=== PATIENT | male | born 1935 | race Caucasian/White ===

== ENCOUNTER 2017-01-23 11:46 | Emergency (ER) | payer MEDICARE, OTHER ==
[2017-01-23] MEDS ORDERED: Alum Hydrox/Mag Hydrox/Simeth 30 ML, Lidocaine 2% 15 ML PO ONE ×2 (12:10)
[2017-01-23] MEDS ORDERED: Aspirin 81 MG Tab.Chew PO ONE (12:10)
[2017-01-23] MEDS ORDERED: Nitroglycerin 0.4 MG Tab.SL SL PRN (12:12)
[2017-01-23] MEDS ORDERED: Metoprolol Tartrate 5 MG in Sodium Chloride 0.9% 50 ML IV ONE (12:13)
[2017-01-23] MEDS ORDERED: Sodium Chloride 0.9% 10 ML Syringe FLUSH PRN (12:19)
--- NOTE | 2017-01-23 12:23 | EDM.PDOC ---
ED HPI GENERAL MEDICAL PROBLEM - General Chief Complaint: Chest Pain Stated Complaint: CHEST PAIN Time Seen by Provider: 01/23/17 12:08 Source of Information: Reports: Patient, Family History Limitations: Reports: No Limitations - History of Present Illness INITIAL COMMENTS - FREE TEXT/NARRATIVE: Patient is a 81-year-old male presents ED complaining of substernal chest pain described as sharp in nature that radiates into his back. Patient states he awoke with this discomfort at approximately 3:00 this morning. He took one nitroglycerin became dizzy with no relief chest pain. Went back to bed in attempt to sleep. Has taken a baby aspirin this morning 1 tab by mouth. States he's had a CABG x4 approximately 9 years ago and also 13 total stents. Last stent was approx 3 years ago. Unknown location. States prior to stent placement he never had chest discomfort. Currently the pain is rated 9/10. He has no shortness of breath. Pain is not described as a tearing sensation. He has a history of aortic valve insufficiency requiring surgery. Denies any history of ascending aortic aneurysm. Currently denies any SOB, dizziness, nausea/vomiting , abdominal pain, pain to his neck, arms, vision changes, or any additional complaints. Past history includes coronary artery disease with stent placement and CABG. Hypertension, GERD, diabetes Current medications include Imdur, Lopressor 50 mg 1 tablet twice daily, HCTZ 25 mg 0.5 mg by mouth 1 time per day, Zantac 150 milligrams 1 tablet by mouth twice a day, Plavix 75 mg 1 tablet per day, aspirin 81 mg, Zetia 10 mg tablet by mouth every other day, Nitrostat, tramadol, lisinopril 10 mg by mouth every day, allopurinol 300 mg by mouth times tab per day, and some eyedrops. Chest Pain Score (Numeric/FACES): 10 - Related Data Allergies Allergy/AdvReac Type Severity Reaction Status Date / Time No Known Allergies Allergy Verified 01/23/17 11:52 Home Meds: Home Meds Allopurinol [Zyloprim] 300 mg PO DAILY 01/23/17 [History] Aspirin [Ecotrin] 81 mg PO DAILY 01/23/17 [History] Brimonidine Tartrate/Timolol [Combigan Eye Drops] 1 drop EYEBOTH DAILY 01/23/17 [History] Clopidogrel Bisulfate [Plavix] 75 mg PO DAILY 01/23/17 [History] Ezetimibe [Zetia] 10 mg PO Q2D 01/23/17 [History] Hydrochlorothiazide 12.5 mg PO DAILY 01/23/17 [History] Isosorbide Mononitrate [Imdur] 60 mg PO DAILY 01/23/17 [History] Lisinopril 10 mg PO DAILY 01/23/17 [History] Metoprolol Tartrate 50 mg PO BID 01/23/17 [History] Nitroglycerin [Nitrostat] 0.4 mg SL ASDIRECTED PRN 01/23/17 [History] Ranitidine [Zantac] 150 mg PO BID 01/23/17 [History] Rosuvastatin [Crestor] 5 mg PO DAILY 01/23/17 [History] Travoprost [Travatan Z] 1 drop EYEBOTH BEDTIME 01/23/17 [History] Social & Family History - Tobacco Use Smoking Status *Q: Never Smoker Second Hand Smoke Exposure: No - Alcohol Use Days Per Week of Alcohol Use: 0 - Recreational Drug Use Recreational Drug Use: No ED ROS GENERAL - Review of Systems Review Of Systems: ROS reveals no pertinent complaints other than HPI. ED EXAM, GENERAL - Physical Exam Exam: See Below Exam Limited By: No Limitations General Appearance: Alert, WD/WN, No Apparent Distress Ears: Hearing Grossly Normal Nose: Normal Inspection Throat/Mouth: Normal Voice, No Airway Compromise Head: Atraumatic, Normocephalic Neck: Normal Inspection, Supple Respiratory/Chest: No Respiratory Distress, Lungs Clear, Normal Breath Sounds, No Accessory Muscle Use, Chest Non-Tender Cardiovascular: Normal Peripheral Pulses, Regular Rate, Rhythm Peripheral Pulses: 2+: Radial (R) GI/Abdominal: Normal Bowel Sounds, Soft, Non-Tender, No Distention Extremities: Normal Inspection, Non-Tender, No Pedal Edema, Normal Capillary Refill Neurological: Alert, Oriented, CN II-XII Intact, Normal Cognition, No Motor/ Sensory Deficits Psychiatric: Normal Affect, Normal Mood Skin Exam: Warm, Dry, Intact Course - Vital Signs Last Recorded V/S: Last Vital Signs Temp 96.6 F 01/23/17 11:53 Pulse 70 01/23/17 16:22 Resp 18 01/23/17 11:53 BP 186/79 H 01/23/17 16:22 Pulse Ox 98 01/23/17 13:37 - Orders/Labs/Meds Orders: Active Orders 24 hr Category Date Time Status Peripheral IV Care [RC] . DIRECTED Care 01/23/17 12:19 Active Peripheral IV Insertion Adult [OM.PC] Stat Oth 01/23/17 12:19 Ordered Labs: Laboratory Tests 01/23/17 01/23/17 01/23/17 Range/Units 12:05 12:05 12:05 WBC 17.08 H (4.23-9.07) K/mm3 RBC 5.17 (4.63-6.08) M/mm3 Hgb 15.0 (13.7-17.5) gm/L Hct 45.7 (40.1-51.0) % MCV 88.4 (79.0-92.2) fl MCH 29.0 (25.7-32.2) pg MCHC 32.8 (32.2-35.5) g/dl RDW Std Deviation 55.1 H (35.1-43.9) fL Plt Count 188 (163-337) K/mm3 MPV 10.3 (9.4-12.3) fl Neut % (Auto) 91.3 H (34.0-67.9) % Lymph % (Auto) 4.0 L (21.8-53.1) % [place] % (Auto) 4.4 L (5.3-12.2) % Eos % (Auto) 0.1 L (0.8-7.0) Baso % (Auto) 0.1 (0.1-1.2) % Neut # (Auto) 15.59 H (1.78-5.38) K/mm3 Lymph # (Auto) 0.68 L (1.32-3.57) K/mm3 [place] # (Auto) 0.76 (0.30-0.82) K/mm3 Eos # (Auto) 0.01 L (0.04-0.54) K/mm3 Baso # (Auto) 0.02 (0.01-0.08) K/mm3 Manual Slide Review Abnormal smear PT 10.7 (8.0-13.0) SECONDS INR 0.98 APTT 25 (22-36) SECONDS Sodium 141 (136-145) mEq/L Potassium 4.2 (3.5-5.1) mEq/L Chloride 101 (98-107) mEq/L Carbon Dioxide 28 (21-32) mEq/L Anion Gap 16.2 H (5-15) BUN 45 H (7-18) mg/dL Creatinine 2.0 H (0.7-1.3) mg/dL Est Cr Clr Drug Dosing 29.40 mL/min Estimated GFR (MDRD) 32 (>60) mL/min BUN/Creatinine Ratio 22.5 H (14-18) Glucose 169 H (83-115) mg/dL Calcium 9.5 (8.5-10.1) mg/dL Total Bilirubin 1.1 H (0.2-1.0) mg/dL AST 22 (15-37) U/L ALT 22 (16-63) U/L Alkaline Phosphatase 129 H (46-116) U/L CK-MB (CK-2) 3.7 H (0-3.6) ng/ml Troponin I 0.051 (0.00-0.056) ng/mL C-Reactive Protein 1.5 H* (<1.0) mg/dL Total Protein 7.9 (6.4-8.2) g/dl Albumin 3.8 (3.4-5.0) g/dl Globulin 4.1 gm/dL Albumin/Globulin Ratio 0.9 L (1-2) Lipase 63 L (73-393) U/L 01/23/ Range/Units 14:05 WBC (4.23-9.07) K/mm3 RBC (4.63-6.08) M/mm3 Hgb (13.7-17.5) gm/L Hct (40.1-51.0) % MCV (79.0-92.2) fl MCH (25.7-32.2) pg MCHC (32.2-35.5) g/dl RDW Std Deviation (35.1-43.9) fL Plt Count (163-337) K/mm3 MPV (9.4-12.3) fl Neut % (Auto) (34.0-67.9) % Lymph % (Auto) (21.8-53.1) % [place] % (Auto) (5.3-12.2) % Eos % (Auto) (0.8-7.0) Baso % (Auto) (0.1-1.2) % Neut # (Auto) (1.78-5.38) K/mm3 Lymph # (Auto) (1.32-3.57) K/mm3 [place] # (Auto) (0.30-0.82) K/mm3 Eos # (Auto) (0.04-0.54) K/mm3 Baso # (Auto) (0.01-0.08) K/mm3 Manual Slide Review PT (8.0-13.0) SECONDS INR APTT (22-36) SECONDS Sodium (136-145) mEq/L Potassium (3.5-5.1) mEq/L Chloride (98-107) mEq/L Carbon Dioxide (21-32) mEq/L Anion Gap (5-15) BUN (7-18) mg/dL Creatinine (0.7-1.3) mg/dL Est Cr Clr Drug Dosing mL/min Estimated GFR (MDRD) (>60) mL/min BUN/Creatinine Ratio (14-18) Glucose (83-115) mg/dL Calcium (8.5-10.1) mg/dL Total Bilirubin (0.2-1.0) mg/dL AST (15-37) U/L ALT (16-63) U/L Alkaline Phosphatase (46-116) U/L CK-MB (CK-2) 3.1 (0-3.6) ng/ml Troponin I 0.079 H* (0.00-0.056) ng/mL C-Reactive Protein (<1.0) mg/dL Total Protein (6.4-8.2) g/dl Albumin (3.4-5.0) g/dl Globulin gm/dL Albumin/Globulin Ratio (1-2) Lipase (73-393) U/L Meds: Medications Discontinued Medications Generic Name Dose Route Start Last Admin Trade Name Freq PRN Reason Stop Dose Admin Aspirin 243 mg 01/23/17 12:10 01/23/17 12:38 Aspirin PO 01/23/17 12:11 243 mg ONETIME ONE Administration Al Hydroxide/Mg Hydroxide 30 0 ml 01/23/17 12:10 01/23/17 12:39 ml/ Lidocaine HCl 15 ml PO 01/23/17 12:11 45 ml ONETIME ONE Administration Metoprolol Tartrate 5 mg/ 55 mls @ 100 mls/hr 01/23/17 12:13 01/23/17 12:54 Sodium Chloride IV 01/23/17 12:45 Not Given ONETIME ONE Sodium Chloride 1,000 mls @ 75 mls/hr 01/23/17 12:30 01/23/17 12:39 Normal Saline IV 75 mls/hr ASDIRECTED MAURA Administration Heparin Sodium/Dextrose 25,000 units in 500 mls @ 0 mls/hr 01/23/17 15:00 15:05 Heparin 25,000 Units In D5w 500 Ml IV 24 mls/hr TITRATE MAURA Administration Protocol 12 UNITS/KG/HR Nitroglycerin/Dextrose 25 mg in 250 mls @ 3 mls/hr 01/23/17 16:15 01/23/17 16 :26 Nitroglycerin 25 Mg/D5w 250 Ml IV 5 mcg/min TITRATE MAURA 3 mls/hr Protocol Administration 5 MCG/MIN Metoprolol Tartrate 5 mg 01/23/17 12:31 01/23/17 12:42 Lopressor IVPUSH 01/23/17 12:32 5 mg ONETIME ONE Administration Metoprolol Tartrate 5 mg 01/23/17 14:39 01/23/17 14:47 Lopressor IVPUSH 01/23/17 14:40 5 mg ONETIME ONE Administration Metoprolol Tartrate 50 mg 01/23/17 16:03 01/23/17 16:22 Lopressor PO 01/23/17 16:04 50 mg ONETIME ONE Administration Morphine Sulfate 4 mg 01/23/17 13:21 01/23/17 13:37 Morphine IVPUSH 01/23/17 13:22 4 mg ONETIME ONE Administration Morphine Sulfate 4 mg 01/23/17 14:55 Morphine IVPUSH ONETIME PRN Chest Pain Nitroglycerin 0.4 mg 01/23/17 12:12 01/23/17 12:41 Nitrostat SL 0.4 mg Q5M PRN Administration Chest Pain Sodium Chloride 10 ml 01/23/17 12:19 01/23/17 12:44 Saline Flush FLUSH 10 ml ASDIRECTED PRN Administration Keep Vein Open - Re-Assessments/Exams Free Text/Narrative Re-Assessment/Exam: Patient currently experiencing chest pain with bp 205/85. Will proceed with nitroglycerin and Lopressor. See below for orders IV established with MS 75 mL per hour, aspirin to 243 mg by mouth, metoprolol tartrate 5 mg IVP, and nitroglycerin 0.4 mg sublingual every 5 minutes when necessary for pain following blood pressure parameters. Initial labs and studies include CBC, chem 14, CRP, troponin, coag studies, lipase, CK-MB, EKG, and chest x-ray one view. EKG: First-degree AV block at a rate of 64 with incomplete right bundle branch block and left anterior fascicular block. No acute ST changes noted. This is compared with previous EKG obtained July 06, 2014 with no significant changes. CXR: Sternotomy wires present. Lung parenchyma does not reveal any acute findings. Calcification to the aortic arch with no widening noted. Cardiomegaly present. Final interpretation is pending reviewed with Dr. Love. Labs reviewed: White blood cell count 17.8, hemoglobin 15.0, neutrophil percentage is 91.3, neutrophil #15.59, coag study INR 0.98, aPTT 25, PT 10.7, sodium 141, potassium 4.2, AG 16.2, creatinine 02.0 close to baseline, glucose 169, alk phosphatase 129, CK-MB is 3.7, troponin 0.051, CRP 1.5 lipase 63. Unclear etiology current complaint. CK-MB is mildly elevated above the upper limits of normal. Continues to have chest discomfort. Although troponin is normal. Will go ahead and get a second troponin in 2 hours. Suspect this is either related to esophageal/acid reflux and/or heart. Unable to rule out ascending aortic aneurysm probability low. Will evaluate for size of the ascending aorta with CT of the chest without contrast. Unable to use contrast due to renal insufficiency. 1310 Reassessment, pain is 8 out of 10. Decreasing as we speak. Believes nitroglycerin was not working. States the GI cocktail is relieving his chest discomfort. Offered additional nitroglycerin to see if this would help. He refuses. Will order morphine 4 mg IVP. In addition I have also ordered a CT of the chest. Second troponin and CK-MB was obtained 2 hours from previous blood work. 01/23/17 13:43 Believe patient's creatinine of 2.0 is close to patient's baseline. Last creatinine noted here was 1.8 July 06, 2014. Prior to that it was 1.4 October 08, 2013. 1343 CT the chest impression: Multiple gallstones in other incidental findings. Nothing acute is identified on noncontrast chest CT. 01/23/17 14:37 Blood pressure 190/systolic. Pain to the chest improving 5/10. He is resting comfortably. Ordered lopressor 5 mg IVP. Morphine 4mg IVP. In addition ordered heparin bolus with gtt following n-stemi guidelines. 01/23/17 14:51 Called [facility] they will call me back when the hospitalist is available. Blood pressure unchanged. Ordered metoprolol 50mg po. I will also ordered nitroglycerin drip due to the patient's elevated blood pressures and continue have pain to 2-3 currently. 01/23/17 16:04 Spoke with [facility] Coordinator. She has spoke with cardiology and Dr. Bai. has accepted the patient. He will be admitted to room 238. Ambulance has been notified. All transfer paperwork has been completed. Departure - Departure Time of Disposition: 16:13 Disposition: DC/Tfer to Acute Hospital 02 Reason for Transfer *Q: Other Condition: Good Clinical Impression: NSTEMI (non-ST elevated myocardial infarction) Referrals: Sam Neff MD [Primary Care Provider] - Forms: ED Department Discharge - My Orders Last 24 Hours: My Active Orders 01/23/17 12:19 Peripheral IV Care [RC] . DIRECTED Peripheral IV Insertion Adult [OM.PC] Stat - Assessment/Plan Last 24 Hours: My Active Orders 01/23/17 12:19 Peripheral IV Care [RC] . DIRECTED Peripheral IV Insertion Adult [OM.PC] Stat
[2017-01-23] MEDS ORDERED: Sodium Chloride 0.9% 1,000 ML IV SCH (12:30)
[2017-01-23] MEDS ORDERED: Metoprolol Tartrate 5 MG/5 ML SDV IVPUSH ONE ×2 (12:31→14:39)
[2017-01-23] MEDS ORDERED: Morphine 4 MG/ML Syringe IVPUSH ONE (13:21)
--- NOTE | 2017-01-23 13:38 | CT ---
CT chest Technique: Multiple axial sections through the chest were obtained. Intravenous contrast was not utilized. Comparison: Prior chest x-ray performed earlier on the same day is available. Findings: Previous sternotomy is noted. Extensive coronary artery calcification is seen. No pericardial thickening is seen. Mediastinum and hilar regions show no adenopathy or mass. Atherosclerotic change is noted within the thoracic aorta and branch vessels. Small portion of the visualized upper abdominal structures shows multiple gallstones within the gallbladder. Lungs are clear. No pleural effusions are seen. Bone window settings were reviewed which shows scattered degenerative change throughout the spine. Impression: 1. Multiple gallstones and other incidental findings. Nothing acute is identified on noncontrast chest CT. Diagnostic code #3
--- NOTE | 2017-01-23 14:05 | CR ---
Chest: Portable view of the chest was obtained. Comparison: Previous chest x-ray of 07/06/14. Heart size appears within normal limits for portable technique. Sternotomy noted for CABG. Coronary artery stent is present. Slight scarring is noted within the left upper chest. Lungs otherwise are clear. Bony structures are grossly intact. Impression: 1. Incidental findings. Nothing acute is appreciated on portable chest x-ray. Diagnostic code #2
[2017-01-23] MEDS ORDERED: Morphine 2 MG/ML Syringe IVPUSH PRN (14:55)
[2017-01-23] MEDS ORDERED: Heparin Sodium/D5W 25,000 UNITS/500 ML BAG IV SCH (15:00)
[2017-01-23] MEDS ORDERED: Metoprolol Tartrate 50 MG Tab PO ONE (16:03)
[2017-01-23] MEDS ORDERED: Nitroglycerin/D5W 25 MG/250 ML BOTTLE IV SCH (16:15)
[2017-01-23 16:22] VITALS: BP 186/79
== END 2017-01-23 17:00 ==
LOC: JD.ED 11:46
DX: I21.4 Non-ST elevation (NSTEMI) myocardial infarction (principal); I25.10 Atherosclerotic heart disease of native coronary artery without angina pectoris; I10 Essential (primary) hypertension; E11.9 Type 2 diabetes mellitus without complications; Z95.1 Presence of aortocoronary bypass graft; Z95.5 Presence of coronary angioplasty implant and graft; Z79.82 Long term (current) use of aspirin; Z79.899 Other long term (current) drug therapy
CPT/HCPCS: 36415; 71010; 71250; 80053; 82553; 83690; 84484; 85025; 85610; 85730; 86140; 96361; 96365; 96366; 96368; 96375; 96376; 99285; A9270; J1644; J2270; J7040; J7050; J3490

== ENCOUNTER 2018-09-28 19:37 | Emergency (ER) | payer MEDICARE, OTHER ==
[2018-09-28 20:03] VITALS: BP 158/80
--- NOTE | 2018-09-28 20:24 | EDM.PDOC ---
ED HPI GENERAL MEDICAL PROBLEM - General Chief Complaint: Respiratory Problem Stated Complaint: cough Time Seen by Provider: 09/28/18 20:04 Source of Information: Reports: Patient History Limitations: Reports: No Limitations - History of Present Illness INITIAL COMMENTS - FREE TEXT/NARRATIVE: This is an 82-year-old male. Onset Monday with cough and congestion. He does have a productive cough of green phlegm. He called his doctor and they started him on a Z-Jesus and he has one more pill to take and it doesn't seem to have helped. He's been coughing so hard that he actually pulled something in his right anterior chest and seems to hurt around the scapula. He denies any fever or chills he denies any nausea vomiting or diarrhea. He is sleeping in his recliner because he is able to breathe better and doesn't cough is much. He has been using Robitussin and honey. He has a history of cardiac disease but he denies any chest pain suggested of his heart. This is sharp pain in the right chest when he coughs only or breathes real deep. Upper Back Pain Score (Numeric/FACES): 10 - Related Data Allergies Allergy/AdvReac Type Severity Reaction Status Date / Time No Known Allergies Allergy Verified 01/23/17 11:52 Home Meds: Home Meds Allopurinol [Zyloprim] 300 mg PO DAILY 01/23/17 [History] Aspirin [Ecotrin] 81 mg PO DAILY 01/23/17 [History] Brimonidine Tartrate/Timolol [Combigan Eye Drops] 1 drop EYEBOTH DAILY 01/23/17 [History] Clopidogrel Bisulfate [Plavix] 75 mg PO DAILY 01/23/17 [History] Ezetimibe [Zetia] 10 mg PO Q2D 01/23/17 [History] Hydrochlorothiazide 12.5 mg PO DAILY 01/23/17 [History] Isosorbide Mononitrate [Imdur] 60 mg PO DAILY 01/23/17 [History] Lisinopril 10 mg PO DAILY 01/23/17 [History] Metoprolol Tartrate 50 mg PO BID 01/23/17 [History] Nitroglycerin [Nitrostat] 0.4 mg SL ASDIRECTED PRN 01/23/17 [History] Ranitidine [Zantac] 150 mg PO BID 01/23/17 [History] Rosuvastatin [Crestor] 5 mg PO DAILY 01/23/17 [History] Travoprost [Travatan Z] 1 drop EYEBOTH BEDTIME 01/23/17 [History] Codeine/guaiFENesin [guaiFENesin-Codeine Syrup] 5 ml PO Q6H PRN #1 cup 09/28/18 [Rx] Past Medical History HEENT History: Reports: Impaired Vision Cardiovascular History: Reports: Bypass, CAD, Heart Failure, Heart Murmur, High Cholesterol, Hypertension, Stents, Other (See Below) Other Cardiovascular History: Aortic valve leak Respiratory History: Reports: SOB Genitourinary History: Reports: Acute Renal Failure - Past Surgical History HEENT Surgical History: Reports: Cataract Surgery Cardiovascular Surgical History: Reports: Coronary Artery Bypass, Other (See Below) Other Cardiovascular Surgeries/Procedures: ENDARECTOMY Musculoskeletal Surgical History: Reports: Knee Replacement Other Musculoskeletal Surgeries/Procedures:: right knee Social & Family History - Family History Family Medical History: Noncontributory - Tobacco Use Smoking Status *Q: Never Smoker - Caffeine Use Caffeine Use: Reports: Coffee, Soda - Recreational Drug Use Recreational Drug Use: No ED ROS GENERAL - Review of Systems Review Of Systems: See Below Constitutional: Denies: Fever, Chills HEENT: Reports: Sinus Problem. Denies: Throat Pain, Throat Swelling Respiratory: Reports: Cough, Sputum. Denies: Shortness of Breath, Wheezing Cardiovascular: Reports: Chest Pain Endocrine: Reports: No Symptoms GI/Abdominal: Reports: No Symptoms : Reports: No Symptoms Musculoskeletal: Reports: No Symptoms Skin: Reports: No Symptoms Neurological: Reports: No Symptoms Psychiatric: Reports: No Symptoms Hematologic/Lymphatic: Reports: No Symptoms ED EXAM, GENERAL - Physical Exam Exam: See Below Exam Limited By: No Limitations General Appearance: Alert, WD/WN, No Apparent Distress Eye Exam: Bilateral Eye: Normal Inspection Ears: Normal External Exam, Normal Canal, Normal TMs Nose: Normal Inspection, Clear Rhinorrhea Throat/Mouth: Normal Inspection, Normal Lips, Normal Oropharynx, Normal Voice, No Airway Compromise Head: Normocephalic Neck: Supple Respiratory/Chest: No Respiratory Distress, Lungs Clear, Normal Breath Sounds. No: Crackles, Rales, Rhonchi, Wheezing Cardiovascular: Regular Rate, Rhythm, No Murmur GI/Abdominal: Soft, Non-Tender Back Exam: Full Range of Motion Extremities: Normal Inspection, Normal Range of Motion Neurological: Alert, Oriented Psychiatric: Normal Affect, Normal Mood Skin Exam: Warm, Dry Course - Vital Signs Last Recorded V/S: Last Vital Signs Temp 97.0 F 09/28/18 19:47 Pulse 66 09/28/18 19:47 Resp 20 09/28/18 19:47 BP 158/80 H 09/28/18 19:47 Pulse Ox 96 09/28/18 19:47 - Orders/Labs/Meds Orders: Active Orders 24 hr Category Date Time Status Chest 2V [CR] Stat Exams 09/28/18 20:18 Taken CBC WITH AUTO DIFF [HEME] Stat Lab 09/28/18 20:35 Results Labs: Laboratory Tests 09/28/18 09/28/18 Range/Units 20:35 20:35 WBC 10.17 H (4.23-9.07) K/mm3 RBC 4.69 (4.63-6.08) M/mm3 Hgb 13.9 (13.7-17.5) gm/L Hct 42.3 (40.1-51.0) % MCV 90.2 (79.0-92.2) fl MCH 29.6 (25.7-32.2) pg MCHC 32.9 (32.2-35.5) g/dl RDW Std Deviation 52.4 H (35.1-43.9) fL Plt Count 225 (163-337) K/mm3 MPV 10.4 (9.4-12.3) fl Neut % (Auto) 66.9 (34.0-67.9) % Lymph % (Auto) 19.4 L (21.8-53.1) % [place] % (Auto) 8.8 (5.3-12.2) % Eos % (Auto) 3.9 (0.8-7.0) Baso % (Auto) 0.6 (0.1-1.2) % Neut # (Auto) 6.80 H (1.78-5.38) K/mm3 Lymph # (Auto) 1.97 (1.32-3.57) K/mm3 [place] # (Auto) 0.90 H (0.30-0.82) K/mm3 Eos # (Auto) 0.40 (0.04-0.54) K/mm3 Baso # (Auto) 0.06 (0.01-0.08) K/mm3 Sodium 138 (136-145) mEq/L Potassium 3.9 (3.5-5.1) mEq/L Chloride 102 (98-107) mEq/L Carbon Dioxide 28 (21-32) mEq/L Anion Gap 11.9 (5-15) BUN 37 H (7-18) mg/dL Creatinine 2.2 H (0.7-1.3) mg/dL Est Cr Clr Drug Dosing 26.27 mL/min Estimated GFR (MDRD) 29 (>60) mL/min BUN/Creatinine Ratio 16.8 (14-18) Glucose 151 H (83-115) mg/dL Calcium 9.1 (8.5-10.1) mg/dL Total Bilirubin 0.8 (0.2-1.0) mg/dL AST 27 (15-37) U/L ALT 28 (16-63) U/L Alkaline Phosphatase 160 H (46-116) U/L Troponin I 0.050 (0.00-0.056) ng/mL Total Protein 7.5 (6.4-8.2) g/dl Albumin 3.4 (3.4-5.0) g/dl Globulin 4.1 gm/dL Albumin/Globulin Ratio 0.8 L (1-2) - Radiology Interpretation Free Text/Narrative:: Chest x-ray does not show any acute infiltrates. - Re-Assessments/Exams Free Text/Narrative Re-Assessment/Exam: 09/28/18 22:11 Spoke to the patient and his regarding the chest x-ray as well as the blood work that all appears to be normal. He was a likely has a viral infection causing his symptoms and that's why the Z-Jesus is not working. I told him to finish the Z-Jesus however just to be safe. I'll provide him a prescription for something for his cough is a little more effective so he is able to rest and sleep. He is to follow-up with his family doctor this coming week. Departure - Departure Time of Disposition: 22:12 Disposition: Home, Self-Care 01 Condition: Good Clinical Impression: Acute bronchitis, viral - Discharge Information *PRESCRIPTION DRUG MONITORING PROGRAM REVIEWED*: No *COPY OF PRESCRIPTION DRUG MONITORING REPORT IN PATIENT MACI: No Prescriptions: Codeine/guaiFENesin [guaiFENesin-Codeine Syrup] 5 ml PO Q6H PRN #1 cup PRN Reason: Cough Referrals: Sam Neff MD [Primary Care Provider] - Forms: ED Department Discharge Additional Instructions: Continue to finish the Z-Jesus, take the Robitussin AC that you get tomorrow as needed for cough, remember it has codeine in it and that can make you sleepy so do not take it and be driving or doing anything dangerous, continue with lots of fluids and water, continue to sleep in the recliner since having the head elevated while you sleep will help your cough, recheck with your doctor next week, return to the ER if you develop a fever or as needed - My Orders Last 24 Hours: My Active Orders 09/28/18 20:18 Chest 2V [CR] Stat 09/28/18 20:35 CBC WITH AUTO DIFF [HEME] Stat - Assessment/Plan Last 24 Hours: My Active Orders 09/28/18 20:18 Chest 2V [CR] Stat 09/28/18 20:35 CBC WITH AUTO DIFF [HEME] Stat
--- NOTE | 2018-10-01 08:01 | CR ---
Chest: Two views of the chest were obtained. Comparison: Right upper chest x-ray of 01/23/[address] of 01/23/17. Heart size is within normal limits. Tortuous thoracic aorta is seen. Stable scarring is noted within the left upper lung. No acute parenchymal change is appreciated. Prior sternotomy is noted for CABG. Scattered degenerative change is noted throughout the spine. Surgical clips are noted from prior cholecystectomy. Impression: 1. Stable findings as noted above. Nothing acute is appreciated. Diagnostic code #2
== END 2018-09-28 22:20 | disposition home or self-care (01) ==
LOC: JD.ED 19:37
DX: J20.8 Acute bronchitis due to other specified organisms (principal); B97.89 Other viral agents as the cause of diseases classified elsewhere; I11.0 Hypertensive heart disease with heart failure; I50.9 Heart failure, unspecified; E78.00 Pure hypercholesterolemia, unspecified; I25.10 Atherosclerotic heart disease of native coronary artery without angina pectoris; Z95.1 Presence of aortocoronary bypass graft; Z79.82 Long term (current) use of aspirin; Z79.899 Other long term (current) drug therapy; Z79.01 Long term (current) use of anticoagulants
CPT/HCPCS: 36415; 71046; 71046-26; 80053; 84484; 85025; 99282; 99284-25

== ENCOUNTER 2019-04-21 17:29 | Emergency (ER) | payer MEDICARE, OTHER ==
[2019-04-21] MEDS ORDERED: Sodium Chloride 0.9% 10 ML Syringe FLUSH PRN (17:36)
[2019-04-21] MEDS ORDERED: Metoprolol Tartrate 5 MG/5 ML SDV IVPUSH ONE (17:46)
[2019-04-21 17:48] VITALS: BP 169/99
[2019-04-21] MEDS ORDERED: Aspirin 81 MG Tab.Chew PO ONE (17:50)
[2019-04-21 17:52] VITALS: PULSE 123
[2019-04-21] MEDS ORDERED: Sodium Chloride 0.9% 1,000 ML IV SCH (18:00)
[2019-04-21] MEDS ORDERED: Glucagon,Human Recombinant 1 MG Vial IVPUSH ONE (18:21)
--- NOTE | 2019-04-21 18:35 | EDM.PDOC ---
ED HPI GENERAL MEDICAL PROBLEM - General Chief Complaint: Cardiovascular Problem Stated Complaint: CHEST PAIN Time Seen by Provider: 04/21/19 17:35 Source of Information: Reports: Patient, RN Notes Reviewed - History of Present Illness INITIAL COMMENTS - FREE TEXT/NARRATIVE: 83 year old gentleman with onset of chest pain about 30 to 40 minutes [employer]. Severe ache with radiation to L arm with mild radiation to his back. This felt similar to when he has had "heart attacks in the past". He took 2 NTG at home which did give some relief. Mild pain on arrival to ED with heart rate noted to be 124 at time of initial triage, 122 at time of my initial eval. He does have hx of CAD. Hx of prior bypass many yrs ago. Hx of "13 stents". Hx of aortic valvular disease. Chest Pain Score (Numeric/FACES): 2 - Related Data Allergies Allergy/AdvReac Type Severity Reaction Status Date / Time No Known Allergies Allergy Verified 04/21/19 17:44 Home Meds: Home Meds Allopurinol [Zyloprim] 300 mg PO DAILY 01/23/17 [History] Aspirin [Ecotrin] 81 mg PO DAILY 01/23/17 [History] Clopidogrel Bisulfate [Plavix] 75 mg PO DAILY 01/23/17 [History] Isosorbide Mononitrate [Imdur] 30 mg PO DAILY 01/23/17 [History] Nitroglycerin [Nitrostat] 0.4 mg SL ASDIRECTED PRN 01/23/17 [History] Rosuvastatin [Crestor] 10 mg PO DAILY 01/23/17 [History] Codeine/guaiFENesin [guaiFENesin-Codeine Syrup] 5 ml PO Q6H PRN #1 cup 09/28/18 [Rx] Furosemide [Lasix] 40 mg PO BID 09/28/18 [History] Levothyroxine 75 mg PO DAILY 09/28/18 [History] Metoprolol Succinate [Toprol XL 50mg] 50 mg PO BID 09/28/18 [History] Pantoprazole Sodium [Protonix] 0 mg PO DAILY 09/28/18 [History] Sertraline [Zoloft] 25 mg PO DAILY 09/28/18 [History] Sildenafil Citrate 100 mg PO ASDIRECTED 09/28/18 [History] Past Medical History HEENT History: Reports: Impaired Vision Cardiovascular History: Reports: Bypass, CAD, Heart Failure, Heart Murmur, High Cholesterol, Hypertension, Stents, Other (See Below) Other Cardiovascular History: Aortic valve leak Respiratory History: Reports: SOB Genitourinary History: Reports: Acute Renal Failure - Past Surgical History HEENT Surgical History: Reports: Cataract Surgery Cardiovascular Surgical History: Reports: Coronary Artery Bypass, Other (See Below) Other Cardiovascular Surgeries/Procedures: ENDARECTOMY Musculoskeletal Surgical History: Reports: Knee Replacement Other Musculoskeletal Surgeries/Procedures:: right knee Social & Family History - Family History Family Medical History: Noncontributory - Tobacco Use Smoking Status *Q: Unknown Ever Smoked - Caffeine Use Caffeine Use: Reports: Coffee, Soda ED ROS GENERAL - Review of Systems Review Of Systems: See Below Constitutional: Denies: Fever, Chills, Diaphoresis HEENT: Reports: No Symptoms Respiratory: Denies: Shortness of Breath Cardiovascular: Reports: Chest Pain (with radiation to L shoulder and arm) GI/Abdominal: Denies: Abdominal Pain, Nausea, Vomiting Musculoskeletal: Reports: Shoulder Pain, Arm Pain Skin: Reports: No Symptoms Neurological: Reports: No Symptoms ED EXAM, GENERAL - Physical Exam Exam: See Below General Appearance: Alert, No Apparent Distress Eye Exam: Bilateral Eye: PERRL Throat/Mouth: Normal Inspection Head: Atraumatic. No: Facial Swelling Neck: Supple Respiratory/Chest: No Respiratory Distress, Lungs Clear, Normal Breath Sounds, Chest Non-Tender. No: Rales, Rhonchi, Wheezing Cardiovascular: Tachycardia GI/Abdominal: Soft, Non-Tender Back Exam: No: CVA Tenderness (L), CVA Tenderness (R) Extremities: Normal Inspection, No Pedal Edema. No: Leg Pain, Increased Warmth , Redness Neurological: Alert, Oriented, No Motor/Sensory Deficits Skin Exam: Warm, Dry, Normal Color EKG INTERPRETATION EKG Date: 04/21/19 Rhythm: Other (narrrow complex rapid rythm, question A flutter with 2:1 block) [place]: Normal P-Wave: Present QRS: Other (there are q waves inf. leads) ST-T: Depressed (mrked st depression V2-V6) Course - Vital Signs Last Recorded V/S: Last Vital Signs Temp 98.5 F 04/21/19 17:45 Pulse 123 H 04/21/19 17:52 Resp 16 04/21/19 17:45 BP 169/99 H 04/21/19 17:52 Pulse Ox 100 04/21/19 17:45 - Orders/Labs/Meds Orders: Active Orders 24 hr Category Date Time Status EKG 12 Lead [EKG Documentation Completion] [] STAT Care 04/21/19 17:36 Active EKG 12 Lead [EKG Documentation Completion] [RC] STAT Care 04/21/19 18:05 Active Peripheral IV Care [RC] . DIRECTED Care 04/21/19 17:37 Active Peripheral IV Insertion Adult [OM.PC] Stat Oth 04/21/19 17:37 Ordered Labs: Laboratory Tests 04/21/19 04/21/19 04/21/19 Range/Units 17:41 17:41 20:43 WBC 10.02 H (4.23-9.07) K/mm3 RBC 5.24 (4.63-6.08) M/mm3 Hgb 15.1 (13.7-17.5) gm/dl Hct 46.2 (40.1-51.0) % MCV 88.2 (79.0-92.2) fl MCH 28.8 (25.7-32.2) pg MCHC 32.7 (32.2-35.5) g/dl RDW Std Deviation 48.4 H (35.1-43.9) fL Plt Count 221 (163-337) K/mm3 MPV 11.2 (9.4-12.3) fl Neut % (Auto) 57.5 (34.0-67.9) % Lymph % (Auto) 25.8 (21.8-53.1) % [place] % (Auto) 9.0 (5.3-12.2) % Eos % (Auto) 6.6 (0.8-7.0) Baso % (Auto) 0.9 (0.1-1.2) % Neut # (Auto) 5.76 H (1.78-5.38) K/mm3 Lymph # (Auto) 2.59 (1.32-3.57) K/mm3 [place] # (Auto) 0.90 H (0.30-0.82) K/mm3 Eos # (Auto) 0.66 H (0.04-0.54) K/mm3 Baso # (Auto) 0.09 H (0.01-0.08) K/mm3 Manual Slide Review Normal smear Sodium 136 (136-145) mEq/L Potassium 4.2 (3.5-5.1) mEq/L Chloride 99 (98-107) mEq/L Carbon Dioxide 27 (21-32) mEq/L Anion Gap 14.2 (5-15) BUN 39 H (7-18) mg/dL Creatinine 2.1 H (0.7-1.3) mg/dL Est Cr Clr Drug Dosing TNP Estimated GFR (MDRD) 30 (>60) mL/min BUN/Creatinine Ratio 18.6 H (14-18) Glucose 156 H (83-115) mg/dL Calcium 9.2 (8.5-10.1) mg/dL Total Bilirubin 0.7 (0.2-1.0) mg/dL AST 34 (15-37) U/L ALT 15 L (16-63) U/L Alkaline Phosphatase 161 H (46-116) U/L Troponin I < 0.017 0.057 H* (0.00-0.056) ng/mL Total Protein 8.4 H (6.4-8.2) g/dl Albumin 3.8 (3.4-5.0) g/dl Globulin 4.6 gm/dL Albumin/Globulin Ratio 0.8 L (1-2) Meds: Medications Discontinued Medications Generic Name Dose Route Start Last Admin Trade Name Freq PRN Reason Stop Dose Admin Aspirin 324 mg 04/21/19 17:50 04/21/19 17:58 Aspirin PO 04/21/19 17:51 324 mg ONETIME ONE Administration Glucagon 1 mg 04/21/19 18:21 04/21/19 18:43 Glucagen IVPUSH 04/21/19 18:22 Not Given ONETIME ONE Sodium Chloride 1,000 mls @ 150 mls/hr 04/21/19 18:00 04/21/19 17:56 Normal Saline IV 150 mls/hr ASDIRECTED MAURA Administration Heparin Sodium/Dextrose 25,000 units in 500 mls @ 20 mls/hr 04/21/19 22:30 Heparin 25,000 Units In D5w 500 Ml IV TITRATE MAURA Protocol Metoprolol Tartrate 5 mg 04/21/19 17:46 04/21/19 17:52 Lopressor IVPUSH 04/21/19 17:47 5 mg ONETIME ONE Administration Sodium Chloride 10 ml 04/21/19 17:36 04/21/19 18:00 Saline Flush FLUSH 10 ml ASDIRECTED PRN Administration Keep Vein Open - Re-Assessments/Exams Free Text/Narrative Re-Assessment/Exam: 04/21/19 22:48. Patient converted to sinus tomas, rate in the low to mid 50's after lopressor 5 mg IV. His pain did completely go away at that time. ST changes much improved on repeat EKG. He had taken his metropolol 50 mg oral at home [employer] along with his other evening meds. On aspirin and plavix, no other blood thinners. Was also given ASA 324 mg PO. Initial trop was normal at less that .017, 3 hr trop elevated at .057. I have discussed this with Dr Pardo, Supervisor Front who believes that he has had genuine ischemia, will treat as a nonSTEMI, have started heparin drip, will transfer [facility] by ground ambulance, Dr Grace, Hospitalist accepting Phys. He has had no recent rectal bleeding, surgery or other apparent contraindication to IV heparin at this time. He continued pain free while in the ED once he converted out of the tachycardia present on arrival to ED. CXR showed mild cardiomegally , no acute findings. Departure - Departure Time of Disposition: 22:00 Disposition: DC/Tfer to Acute Hospital 02 Reason for Transfer *Q: Other Condition: Serious Clinical Impression: NSTEMI (non-ST elevated myocardial infarction), Renal insufficiency Referrals: Sam Neff MD [Primary Care Provider] - Forms: ED Department Discharge Sepsis Event Note - Evaluation Sepsis Screening Result: No Definite Risk - Focused Exam Date Exam was Performed: 04/22/19 Time Exam was Performed: 15:11 - My Orders Last 24 Hours: My Active Orders 04/21/19 17:36 EKG 12 Lead [EKG Documentation Completion] [RC] STAT 04/21/19 17:37 Peripheral IV Care [RC] . DIRECTED Peripheral IV Insertion Adult [OM.PC] Stat 04/21/19 18:05 EKG 12 Lead [EKG Documentation Completion] [RC] STAT - Assessment/Plan Last 24 Hours: My Active Orders 04/21/19 17:36 EKG 12 Lead [EKG Documentation Completion] [RC] STAT 04/21/19 17:37 Peripheral IV Care [RC] . DIRECTED Peripheral IV Insertion Adult [OM.PC] Stat 04/21/19 18:05 EKG 12 Lead [EKG Documentation Completion] [RC] STAT
[2019-04-21] MEDS ORDERED: Heparin Sodium/D5W 25,000 UNITS/500 ML BAG IV SCH (22:30)
--- NOTE | 2019-04-22 07:32 | CR ---
Chest: Portable view of the chest was obtained. Comparison: Prior chest x-ray of 09/28/18. Slight linear scarring is noted within the left upper lung. Minimal linear scarring is noted within the right upper lung. Lungs otherwise are clear with no acute parenchymal change. Heart size at the upper limits of normal. Tortuous thoracic aorta is seen. Sternotomy wires are noted. Impression: 1. Findings as described above. Nothing acute is appreciated. Diagnostic code #2 This report was dictated in [place] Standard Time
== END 2019-04-21 23:10 ==
LOC: JD.ED 17:29
DX: I21.4 Non-ST elevation (NSTEMI) myocardial infarction (principal); N28.9 Disorder of kidney and ureter, unspecified; I11.0 Hypertensive heart disease with heart failure; I50.9 Heart failure, unspecified; I25.10 Atherosclerotic heart disease of native coronary artery without angina pectoris; E78.00 Pure hypercholesterolemia, unspecified; Z95.1 Presence of aortocoronary bypass graft; Z79.82 Long term (current) use of aspirin; Z79.02 Long term (current) use of antithrombotics/antiplatelets; Z79.899 Other long term (current) drug therapy
CPT/HCPCS: 36415; 71045; 80053; 84484; 85025; 93005; 96361; 96374; 99285; A9270; J3490; J7030; 93010; 99284

== ENCOUNTER 2019-07-02 18:16 | Emergency (ER) | payer MEDICARE, OTHER ==
[2019-07-02 18:25] VITALS: BP 170/62; PULSE 60
--- NOTE | 2019-07-02 19:12 | EDM.PDOC ---
ED HPI GENERAL MEDICAL PROBLEM - General Chief Complaint: ENT Problem Stated Complaint: NOSE BLEED Time Seen by Provider: 07/02/19 19:11 - History of Present Illness INITIAL COMMENTS - FREE TEXT/NARRATIVE: 83-year-old male presents the emergency room with a nosebleed This started several hours ago and was less intermittent prior to that patient is on Plavix and Eliquis. Patient recently had a bovine valve placed in the aortic position. This is leaking apparently. And they are keeping a close eye on it they have noticed a murmur. The nosebleed has been on and off for a while but became more progressive over the last several hours. According to the patient at times the port out of the nose is primarily out of the left nostril. The patient is not any chest pain chest pressure or breathing difficulties or shortness of breath no nausea no vomiting no black or tarry stools. - Related Data Allergies Allergy/AdvReac Type Severity Reaction Status Date / Time No Known Allergies Allergy Verified 07/02/19 18:25 Home Meds: Home Meds Allopurinol [Zyloprim] 300 mg PO DAILY 01/23/17 [History] Aspirin [Ecotrin] 81 mg PO DAILY 01/23/17 [History] Clopidogrel Bisulfate [Plavix] 75 mg PO DAILY 01/23/17 [History] Isosorbide Mononitrate [Imdur] 30 mg PO DAILY 01/23/17 [History] Nitroglycerin [Nitrostat] 0.4 mg SL ASDIRECTED PRN 01/23/17 [History] Rosuvastatin [Crestor] 10 mg PO DAILY 01/23/17 [History] Codeine/guaiFENesin [guaiFENesin-Codeine Syrup] 5 ml PO Q6H PRN #1 cup 09/28/18 [Rx] Furosemide [Lasix] 40 mg PO BID 09/28/18 [History] Levothyroxine 75 mg PO DAILY 09/28/18 [History] Metoprolol Succinate [Toprol XL 50mg] 50 mg PO BID 09/28/18 [History] Pantoprazole Sodium [Protonix] 0 mg PO DAILY 09/28/18 [History] Sertraline [Zoloft] 25 mg PO DAILY 09/28/18 [History] Sildenafil Citrate 100 mg PO ASDIRECTED 09/28/18 [History] Past Medical History HEENT History: Reports: Impaired Vision Cardiovascular History: Reports: Bypass, CAD, Heart Failure, Heart Murmur, High Cholesterol, Hypertension, Stents, Other (See Below) Other Cardiovascular History: Aortic valve leak Respiratory History: Reports: SOB Genitourinary History: Reports: Acute Renal Failure Hematologic History: Reports: Anticoagulation Therapy - Infectious Disease History Infectious Disease History: Reports: Chicken Pox, Mumps - Past Surgical History HEENT Surgical History: Reports: Cataract Surgery Cardiovascular Surgical History: Reports: Coronary Artery Bypass, Other (See Below) Other Cardiovascular Surgeries/Procedures: ENDARECTOMY GI Surgical History: Reports: Cholecystectomy Musculoskeletal Surgical History: Reports: Knee Replacement Other Musculoskeletal Surgeries/Procedures:: right knee Social & Family History - Family History Family Medical History: Noncontributory - Tobacco Use Smoking Status *Q: Never Smoker Second Hand Smoke Exposure: No - Caffeine Use Caffeine Use: Reports: Coffee, Soda - Recreational Drug Use Recreational Drug Use: No ED ROS ENT - Review of Systems Review Of Systems: See Below Constitutional: Reports: No Symptoms HEENT: Reports: Nosebleed Respiratory: Reports: No Symptoms Cardiovascular: Reports: No Symptoms GI/Abdominal: Reports: No Symptoms Musculoskeletal: Reports: No Symptoms Skin: Reports: No Symptoms Neurological: Reports: No Symptoms Psychiatric: Reports: No Symptoms ED EXAM, ENT - Physical Exam Exam: See Below Exam Limited By: No Limitations General Appearance: Alert, No Apparent Distress, Other (The patient has a rolled up piece of toilet paper or Kleenex up in his nose right now he is not actively bleeding at the time of initial evaluation) Nose: Other (His nasal packing was removed and no active bleeding the left nostril was well visualized on the anterior septum he has a few areas that had some loose blood sit none of this was gently dabbed off with a Kleenex and what appeared to be bleeding site was noted and this was cauterized with silver nitrate) Head: Atraumatic, Normocephalic Neck: Normal Inspection, Supple, Non-Tender, Full Range of Motion Respiratory/Chest: No Respiratory Distress, Lungs Clear, Normal Breath Sounds Cardiovascular: Regular Rate, Rhythm, No Edema, No Murmur GI/Abdominal: Normal Bowel Sounds, Soft, Non-Tender ED ENT PROCEDURES - Epistaxis Procedure Indication: Uncontrolled Recent anticoagulants/antiplatlets: Yes Uncontrolled HTN: No Recent septal/nasal surgery: No Site of bleeding: Left Nare, Anterior Clearing of clots: Patient Blew Nose Chemical cautery: Silver Nitrate Topical (Did well with minimal silver nitrate treatment of the suspected area.) Course - Vital Signs Last Recorded V/S: Last Vital Signs Temp 36.7 C 07/02/19 18:22 Pulse 60 07/02/19 18:22 Resp 19 07/02/19 18:22 BP 170/62 H 07/02/19 18:22 Pulse Ox 95 07/02/19 18:22 - Re-Assessments/Exams Free Text/Narrative Re-Assessment/Exam: 07/02/19 19:54 The patient has remained stable after cauterizing his nose. I was hoping to check a CBC on him however the patient is fairly insistent on going home at this point he agrees to return with any worsening symptoms questions or problems. Departure - Departure Time of Disposition: 19:54 Disposition: Home, Self-Care 01 Clinical Impression: Anterior epistaxis - Discharge Information Referrals: Sam Neff MD [Primary Care Provider] - Forms: ED Department Discharge Additional Instructions: Return to the emergency room with any questions problems or worsening symptoms. Follow-up with your regular doctor as needed. Use some K-Y jelly or Preparation H to the bottom of your left nose every couple hours while you are awake. Sepsis Event Note - Evaluation Sepsis Screening Result: No Definite Risk - Focused Exam Vital Signs: Vital Signs Temp Pulse Resp BP Pulse Ox 07/02/19 18:22 36.7 C 60 19 170/62 H 95 Date Exam was Performed: 07/02/19 Time Exam was Performed: 19:53
== END 2019-07-02 20:15 | disposition home or self-care (01) ==
LOC: JD.ED 18:16
DX: R04.0 Epistaxis (principal); I11.0 Hypertensive heart disease with heart failure; I50.9 Heart failure, unspecified; I25.10 Atherosclerotic heart disease of native coronary artery without angina pectoris; E78.00 Pure hypercholesterolemia, unspecified; Z95.1 Presence of aortocoronary bypass graft; Z95.5 Presence of coronary angioplasty implant and graft; Z79.82 Long term (current) use of aspirin; Z79.01 Long term (current) use of anticoagulants; Z79.02 Long term (current) use of antithrombotics/antiplatelets; Z79.899 Other long term (current) drug therapy
CPT/HCPCS: 12001; 30901; 99282; 99283

== ENCOUNTER 2020-05-03 04:35 | Emergency (ER) | payer MEDICARE, OTHER ==
[2020-05-03] MEDS ORDERED: Sodium Chloride 0.9% 1,000 ML IV SCH (06:15)
[2020-05-03] MEDS ORDERED: Iopamidol 755 MG/ML 50 ML Bottle IVPUSH ONE (06:35)
[2020-05-03] MEDS ORDERED: Sodium Chloride 0.9% 100 ML IV SCH (06:45)
[2020-05-03] MEDS ORDERED: Sodium Chloride 0.9% 10 ML Syringe FLUSH SCH (06:45)
--- NOTE | 2020-05-03 07:10 | EDM.PDOC ---
ED HPI GENERAL MEDICAL PROBLEM - General Chief Complaint: Chest Pain Stated Complaint: BACK PAINS AND CHEST PAIN WOKE HIM Time Seen by Provider: 05/03/20 04:42 Source of Information: Reports: Patient, Family History Limitations: Reports: No Limitations - History of Present Illness INITIAL COMMENTS - FREE TEXT/NARRATIVE: This is an 84-year-old male. Onset of some aching in his chest and his back and mild headache on Monday. He did get his Covid vaccination the first shot on Monday and it seems like the symptoms worsened. He comes in this morning because he says the aching in his back and his chest and his headache are persistent and he is tired of them so he comes to the ER. He cannot think of any particular thing other than the aching that is bothering him. He has no chest pain that radiates to his neck or his back or down his left arm. He has no shortness of breath. He does have a low-grade fever in the ER noted. He denies any skin lesions or infections. He has had no cough. He denies any urinary symptoms. Just complains of aching. 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 Has a history of hypertension. Chest Pain Score (Numeric/FACES): 8 - Related Data Allergies Allergy/AdvReac Type Severity Reaction Status Date / Time No Known Allergies Allergy Verified 05/03/20 04:49 Home Meds: Home Meds Allopurinol [Zyloprim] 300 mg PO DAILY 01/23/17 [History] Aspirin [Ecotrin] 81 mg PO DAILY 01/23/17 [History] Clopidogrel Bisulfate [Plavix] 75 mg PO DAILY 01/23/17 [History] Isosorbide Mononitrate [Imdur] 30 mg PO DAILY 01/23/17 [History] Nitroglycerin [Nitrostat] 0.4 mg SL ASDIRECTED PRN 01/23/17 [History] Rosuvastatin [Crestor] 10 mg PO DAILY 01/23/17 [History] Codeine/guaiFENesin [guaiFENesin-Codeine Syrup] 5 ml PO Q6H PRN #1 cup 09/28/18 [Rx] Furosemide [Lasix] 40 mg PO BID 09/28/18 [History] Levothyroxine 75 mg PO DAILY 09/28/18 [History] Metoprolol Succinate [Toprol XL 50mg] 50 mg PO BID 09/28/18 [History] Pantoprazole Sodium [Protonix] 0 mg PO DAILY 09/28/18 [History] Sertraline [Zoloft] 25 mg PO DAILY 09/28/18 [History] Sildenafil Citrate 100 mg PO ASDIRECTED 09/28/18 [History] Hydrocodone/Acetaminophen [Hydrocodone-Acetamin 5-325 mg] 1 each PO Q6H PRN #15 tablet 05/03/20 [Rx] Past Medical History HEENT History: Reports: Impaired Vision Cardiovascular History: Reports: Bypass, CAD, Heart Failure, Heart Murmur, High Cholesterol, Hypertension, Stents, Other (See Below) Other Cardiovascular History: Aortic valve leak Respiratory History: Reports: SOB Genitourinary History: Reports: Acute Renal Failure Hematologic History: Reports: Anticoagulation Therapy - Infectious Disease History Infectious Disease History: Reports: Chicken Pox, Mumps - Past Surgical History HEENT Surgical History: Reports: Cataract Surgery Cardiovascular Surgical History: Reports: Coronary Artery Bypass, Other (See Below) Other Cardiovascular Surgeries/Procedures: ENDARECTOMY GI Surgical History: Reports: Cholecystectomy Musculoskeletal Surgical History: Reports: Knee Replacement Other Musculoskeletal Surgeries/Procedures:: right knee Social & Family History - Family History Family Medical History: No Pertinent Family History - Tobacco Use Tobacco Use Status *Q: Never Tobacco User Second Hand Smoke Exposure: No - Caffeine Use Caffeine Use: Reports: None - Recreational Drug Use Recreational Drug Use: No ED ROS GENERAL - Review of Systems Review Of Systems: See Below Constitutional: Denies: Fever, Chills, Malaise HEENT: Denies: Rhinitis, Throat Pain Respiratory: Denies: Shortness of Breath, Cough Cardiovascular: Denies: Chest Pain Endocrine: Reports: No Symptoms GI/Abdominal: Denies: Abdominal Pain, Diarrhea, Nausea, Vomiting : Reports: No Symptoms Musculoskeletal: Reports: Other (Planes of myalgias in his back his chest.) Skin: Reports: No Symptoms Neurological: Reports: Headache Psychiatric: Reports: No Symptoms Hematologic/Lymphatic: Reports: No Symptoms ED EXAM, GENERAL - Physical Exam Exam: See Below Exam Limited By: No Limitations General Appearance: Alert, WD/WN, No Apparent Distress Eye Exam: Bilateral Eye: Normal Inspection Ears: Normal External Exam, Normal Canal, Normal TMs Nose: Normal Inspection. No: Nasal Drainage, Clear Rhinorrhea Throat/Mouth: Normal Inspection, Normal Lips, Normal Voice, No Airway Compromise Head: Normocephalic Neck: Supple Respiratory/Chest: No Respiratory Distress, Lungs Clear, Normal Breath Sounds Cardiovascular: Regular Rate, Rhythm, No Murmur GI/Abdominal: Soft, Non-Tender Back Exam: Full Range of Motion Extremities: Normal Inspection, Normal Range of Motion Neurological: Alert, Oriented Psychiatric: Normal Affect, Normal Mood Skin Exam: Warm, Dry #1 Interpretation EKG Date: 05/03/20 Time: 04:50 EKG Interpretation Comments: EG shows a normal sinus rhythm, there is a nonspecific interventricular conduction delay that is noted, there is no acute ST or T wave changes or ST elevation and there is no acute ischemia noted. Course - Vital Signs Last Recorded V/S: Last Vital Signs Temp 100.3 F 05/03/20 04:44 Pulse 71 05/03/20 04:44 Resp 16 05/03/20 04:44 BP 176/79 H 05/03/20 04:44 Pulse Ox 96 05/03/20 04:44 - Orders/Labs/Meds Orders: Active Orders 24 hr Category Date Time Status EKG 12 Lead [EKG Documentation Completion] [RC] STAT Care 05/03/20 04:50 Active Ang Chest [CT] Stat Exams 05/03/20 06:13 Taken CXR [Chest 1V Frontal] [CR] Stat Exams 05/03/20 05:14 Taken Sodium Chloride 0.9% [Normal Saline] 1,000 ml Med 05/03/20 06:15 Active IV ASDIRECTED Sodium Chloride 0.9% [Normal Saline] 100 ml Med 05/03/20 06:45 Active IV ASDIRECTED Sodium Chloride 0.9% [Saline Flush] Med 05/03/20 06:45 Active 10 ml FLUSH BOLUS Medication Orders Sodium Chloride (Normal Saline) 1,000 mls @ 500 mls/hr IV ASDIRECTED MAURA Last Admin: 05/03/20 06:18 Dose: 500 mls/hr Documented by: [email or web address] Sodium Chloride (Normal Saline) 100 mls @ 60 drops/min IV ASDIRECTED MAURA Last Admin: 05/03/20 07:10 Dose: 60 drops/min Documented by: ONEIGIN Sodium Chloride (Saline Flush) 10 ml FLUSH BOLUS MAURA Last Admin: 05/03/20 07:10 Dose: 10 ml Documented by: ONEIGIN Labs: Laboratory Tests 05/03/20 05/03/20 05/03/20 Range/Units 05:05 05:05 05:05 WBC 16.49 H (4.23-9.07) K/mm3 RBC 4.80 (4.63-6.08) M/mm3 Hgb 14.7 (13.7-17.5) gm/dl Hct 44.1 (40.1-51.0) % MCV 91.9 D (79.0-92.2) fl MCH 30.6 (25.7-32.2) pg MCHC 33.3 (32.2-35.5) g/dl RDW Std Deviation 47.2 H (35.1-43.9) fL Plt Count 143 L D (163-337) K/mm3 MPV 9.8 (9.4-12.3) fl Neut % (Auto) 87.1 H (34.0-67.9) % Lymph % (Auto) 5.6 L (21.8-53.1) % Wilkin % (Auto) 6.1 (5.3-12.2) % Eos % (Auto) 0.8 (0.8-7.0) Baso % (Auto) 0.2 (0.1-1.2) % Neut # (Auto) 14.36 H (1.78-5.38) K/mm3 Lymph # (Auto) 0.93 L (1.32-3.57) K/mm3 Wilkin # (Auto) 1.00 H (0.30-0.82) K/mm3 Eos # (Auto) 0.14 (0.04-0.54) K/mm3 Baso # (Auto) 0.03 (0.01-0.08) K/mm3 Manual Slide Review Abnormal smear D-Dimer, Quantitative 1.13 H (0.19-0.50) mg/L Sodium 139 (136-145) mEq/L Potassium 3.6 (3.5-5.1) mEq/L Chloride 100 (98-107) mEq/L Carbon Dioxide 29 (21-32) mEq/L Anion Gap 13.6 (5-15) BUN 24 H (7-18) mg/dL Creatinine 2.1 H (0.7-1.3) mg/dL Est Cr Clr Drug Dosing 26.55 mL/min Estimated GFR (MDRD) 30 (>60) mL/min BUN/Creatinine Ratio 11.4 L (14-18) Glucose 181 H (83-115) mg/dL Calcium 9.1 (8.5-10.1) mg/dL Total Bilirubin 1.2 H (0.2-1.0) mg/dL AST 22 (15-37) U/L ALT 18 (16-63) U/L Alkaline Phosphatase 168 H (46-116) U/L Creatine Kinase 75 (39-308) U/L Troponin I 0.018 (0.00-0.056) ng/mL C-Reactive Protein 5.2 H* (<1.0) mg/dL Total Protein 7.8 (6.4-8.2) g/dl Albumin 3.2 L (3.4-5.0) g/dl Globulin 4.6 gm/dL Albumin/Globulin Ratio 0.7 L (1-2) Urine Color (Yellow) Urine Appearance (Clear) Urine pH (5.0-8.0) Ur Specific Bend (1.005-1.030) Urine Protein (Negative) Urine Glucose (UA) (Negative) Urine Ketones (Negative) Urine Occult Blood (Negative) Urine Nitrite (Negative) Urine Bilirubin (Negative) Urine Urobilinogen (0.2-1.0) Ur Leukocyte Esterase (Negative) Urine RBC (0-5) /hpf Urine WBC (0-5) /hpf Ur Epithelial Cells (0-5) /hpf Urine Bacteria (FEW) /hpf Urine Mucus (FEW) /hpf 05/03/20 Range/Units 05:13 WBC (4.23-9.07) K/mm3 RBC (4.63-6.08) M/mm3 Hgb (13.7-17.5) gm/dl Hct (40.1-51.0) % MCV (79.0-92.2) fl MCH (25.7-32.2) pg MCHC (32.2-35.5) g/dl RDW Std Deviation (35.1-43.9) fL Plt Count (163-337) K/mm3 MPV (9.4-12.3) fl Neut % (Auto) (34.0-67.9) % Lymph % (Auto) (21.8-53.1) % Wilkin % (Auto) (5.3-12.2) % Eos % (Auto) (0.8-7.0) Baso % (Auto) (0.1-1.2) % Neut # (Auto) (1.78-5.38) K/mm3 Lymph # (Auto) (1.32-3.57) K/mm3 Wilkin # (Auto) (0.30-0.82) K/mm3 Eos # (Auto) (0.04-0.54) K/mm3 Baso # (Auto) (0.01-0.08) K/mm3 Manual Slide Review D-Dimer, Quantitative (0.19-0.50) mg/L Sodium (136-145) mEq/L Potassium (3.5-5.1) mEq/L Chloride (98-107) mEq/L Carbon Dioxide (21-32) mEq/L Anion Gap (5-15) BUN (7-18) mg/dL Creatinine (0.7-1.3) mg/dL Est Cr Clr Drug Dosing mL/min Estimated GFR (MDRD) (>60) mL/min BUN/Creatinine Ratio (14-18) Glucose (83-115) mg/dL Calcium (8.5-10.1) mg/dL Total Bilirubin (0.2-1.0) mg/dL AST (15-37) U/L ALT (16-63) U/L Alkaline Phosphatase (46-116) U/L Creatine Kinase (39-308) U/L Troponin I (0.00-0.056) ng/mL C-Reactive Protein (<1.0) mg/dL Total Protein (6.4-8.2) g/dl Albumin (3.4-5.0) g/dl Globulin gm/dL Albumin/Globulin Ratio (1-2) Urine Color Yellow (Yellow) Urine Appearance Clear (Clear) Urine pH 6.0 (5.0-8.0) Ur Specific Bend 1.020 (1.005-1.030) Urine Protein 2+ H (Negative) Urine Glucose (UA) Negative (Negative) Urine Ketones Negative (Negative) Urine Occult Blood 1+ H (Negative) Urine Nitrite Negative (Negative) Urine Bilirubin Negative (Negative) Urine Urobilinogen 0.2 (0.2-1.0) Ur Leukocyte Esterase Negative (Negative) Urine RBC 0-5 (0-5) /hpf Urine WBC 0-5 (0-5) /hpf Ur Epithelial Cells 5-10 H (0-5) /hpf Urine Bacteria Few (FEW) /hpf Urine Mucus Few (FEW) /hpf Meds: Medications Generic Name Dose Route Start Last Admin Trade Name Freq PRN Reason Stop Dose Admin Sodium Chloride 1,000 mls @ 500 mls/hr 05/03/20 06:15 05/03/20 06:18 Normal Saline IV 500 mls/hr ASDIRECTED MAURA Administration Sodium Chloride 100 mls @ 60 drops/min 05/03/20 06:45 05/03/20 07:10 Normal Saline IV 60 drops/min ASDIRECTED MAURA Administration Sodium Chloride 10 ml 05/03/20 06:45 05/03/20 07:10 Saline Flush FLUSH 10 ml BOLUS MAURA Administration Discontinued Medications Generic Name Dose Route Start Last Admin Trade Name Freq PRN Reason Stop Dose Admin Iopamidol 50 ml 05/03/20 06:35 05/03/20 07:10 Isovue-370 (76%) IVPUSH 05/03/20 06:36 50 ml ONETIME ONE Administration - Radiology Interpretation Free Text/Narrative:: CT angio does not show any pulmonary embolism and no other acute findings. - Re-Assessments/Exams Free Text/Narrative Re-Assessment/Exam: 05/03/20 07:10 Patient has been comfortable since he has been here with a good pulse ox in the 90s. I went and quizzed him regarding any sort of new symptoms or infectious processes but he denies anything. 05/03/20 08:00 Spoke to the patient regarding his test results. I do not know why he is aching in his muscles in the front and the back and a mild headache. His white count is elevated his C-reactive protein is elevated but I am not finding a source for it. Also he is got some renal insufficiency but apparently that is old. I have encouraged him to follow-up with his doctor in case something was going on with just not seeing the full picture at this time. He indicates he will follow-up with his family doctor. Departure - Departure Time of Disposition: 08:00 Disposition: Home, Self-Care 01 Condition: Fair Clinical Impression: Myalgia, Elevated C-reactive protein, Renal insufficiency Leukocytosis Qualifiers: Leukocytosis type: other Qualified Code(s): D72.828 - Other elevated white blood cell count - Discharge Information *PRESCRIPTION DRUG MONITORING PROGRAM REVIEWED*: Not Applicable *COPY OF PRESCRIPTION DRUG MONITORING REPORT IN PATIENT MACI: Not Applicable Prescriptions: Hydrocodone/Acetaminophen [Hydrocodone-Acetamin 5-325 mg] 1 each PO Q6H PRN #15 tablet PRN Reason: Pain Instructions: Musculoskeletal Pain Referrals: Sam Neff MD [Primary Care Provider] - Forms: ED Department Discharge Additional Instructions: 10 you to drink lots of fluids, I have not found what is causing your white count to be elevated and the inflammation in your body to be elevated and perhaps we are seeing it too early to know, I will give you something for your muscle aching and soreness, but you need to follow-up with your family doctor for recheck this week to make sure we have not missed something, return to the ER if needed Sepsis Event Note (ED) - Evaluation Sepsis Screening Result: No Definite Risk - Focused Exam Vital Signs: Vital Signs Temp Pulse Resp BP Pulse Ox 05/03/20 04:44 100.3 F 71 16 176/79 H 96 - My Orders Last 24 Hours: My Active Orders 05/03/20 04:50 EKG 12 Lead [EKG Documentation Completion] [RC] STAT 05/03/20 05:14 CXR [Chest 1V Frontal] [CR] Stat 05/03/20 06:13 Ang Chest [CT] Stat 05/03/20 06:15 Sodium Chloride 0.9% [Normal Saline] 1,000 ml IV ASDIRECTED 05/03/20 06:45 Sodium Chloride 0.9% [Normal Saline] 100 ml IV ASDIRECTED Sodium Chloride 0.9% [Saline Flush] 10 ml FLUSH BOLUS - Assessment/Plan Last 24 Hours: My Active Orders 05/03/20 04:50 EKG 12 Lead [EKG Documentation Completion] [RC] STAT 05/03/20 05:14 CXR [Chest 1V Frontal] [CR] Stat 05/03/20 06:13 Ang Chest [CT] Stat 05/03/20 06:15 Sodium Chloride 0.9% [Normal Saline] 1,000 ml IV ASDIRECTED 05/03/20 06:45 Sodium Chloride 0.9% [Normal Saline] 100 ml IV ASDIRECTED Sodium Chloride 0.9% [Saline Flush] 10 ml FLUSH BOLUS
[2020-05-03 08:27] VITALS: BP 149/73; PULSE 74
--- NOTE | 2020-05-03 10:31 | CT ---
CT chest Technique: Multiple axial sections through the chest were obtained. Intravenous contrast was utilized. Study has been performed as a pulmonary angiogram protocol. Comparison: Previous chest x-ray of 04/21/[address] study of 01/23/17. Findings: Pulmonary arteries are well opacified. No filling defects are seen to indicate pulmonary embolism. Coronary artery calcification is noted. Previous sternotomy is seen. Thoracic aorta shows atherosclerotic change without aneurysm. No mediastinal adenopathy is seen. No pericardial thickening is seen. There appears to be prior surgery at the aortic valve. Visualized upper abdominal structures show previous cholecystectomy with no acute abnormality. Lung window settings were reviewed which show mild groundglass appearance which could represent bronchitis or mild pulmonary vascular congestion. Bone window settings were reviewed which show scattered degenerative change throughout the spine. No acute osseous finding is appreciated. Impression: 1. No definite findings of pulmonary embolism. 2. Mild groundglass appearance scattered within the lungs either due to bronchitis or pulmonary vascular congestion. 3. Other findings as noted above. Diagnostic code #3
[2020-05-03] MEDS ORDERED: Etomidate 2 MG/ML 20 ML SDV IVPUSH ONE (11:00)
[2020-05-03] MEDS ORDERED: Succinylcholine 200 MG/10 ML MDV ONE (11:00)
[2020-05-03] MEDS ORDERED: Midazolam 1 MG/ML 5 ML SDV ONE (11:00)
[2020-05-03] MEDS ORDERED: Rocuronium 50 MG/5 ML Vial ONE (11:00)
--- NOTE | 2020-05-03 11:11 | CR ---
Chest: Portable view of the chest was obtained. Comparison: Prior chest x-ray of 04/21/19. Prior chest CT performed on the same day. Heart size and mediastinum are normal. Slight areas of increased density are seen within both mid and lower lungs possibly due to minimal areas of pneumonia. Previous sternotomy noted as well as pacemaker. Impression: 1. Slight densities within both mid and lower lungs most likely representing minimal areas of pneumonia. Please correlate with patient's symptoms. 2. Nothing acute is otherwise seen. Diagnostic code #3
== END 2020-05-03 08:20 | disposition home or self-care (01) ==
LOC: JD.ED 04:35
DX: R07.9 Chest pain, unspecified (principal); M54.9 Dorsalgia, unspecified; R51.9 Headache, unspecified; D72.828 Other elevated white blood cell count; R79.89 Other specified abnormal findings of blood chemistry; N28.9 Disorder of kidney and ureter, unspecified; I25.10 Atherosclerotic heart disease of native coronary artery without angina pectoris; E78.00 Pure hypercholesterolemia, unspecified; I11.0 Hypertensive heart disease with heart failure; I50.9 Heart failure, unspecified; Z95.5 Presence of coronary angioplasty implant and graft; Z95.1 Presence of aortocoronary bypass graft; Z79.82 Long term (current) use of aspirin; Z79.02 Long term (current) use of antithrombotics/antiplatelets
CPT/HCPCS: 36415; 71045; 71275; 80053; 81001; 82550; 84484; 85025; 85379; 86140; 93005; 99285; J0330; J2250; J3490; J7030; Q9967; 93010; 99284

== ENCOUNTER 2020-05-03 17:05 | Observation (INO) | payer MEDICARE, OTHER ==
[2020-05-03] MEDS ORDERED: Sodium Chloride 0.9% 10 ML Syringe FLUSH PRN (17:17)
[2020-05-03] MEDS ORDERED: cefTRIAXone 2 GM in Sodium Chloride 0.9% 100 ML IV ONE (17:19)
[2020-05-03] MEDS ORDERED: Succinylcholine 200 MG/10 ML MDV IV ONE (17:20)
[2020-05-03] MEDS ORDERED: Etomidate 2 MG/ML 20 ML SDV IVPUSH ONE (17:20)
[2020-05-03] MEDS ORDERED: Midazolam 1 MG/ML 5 ML SDV IVPUSH ONE (17:21)
[2020-05-03] MEDS ORDERED: Rocuronium 50 MG/5 ML Vial IVPUSH ONE (17:21)
[2020-05-03] MEDS ORDERED: propofoL 100 ML IV SCH (17:30)
[2020-05-03] MEDS ORDERED: Sodium Chloride 0.9% 1,000 ML IV SCH (17:30)
[2020-05-03] MEDS ORDERED: Acetaminophen 650 MG Supp RECTAL ONE (17:41)
--- NOTE | 2020-05-03 18:02 | CT ---
Head CT Technique: Multiple axial sections through the brain were obtained. Intravenous contrast was utilized. Reconstructed coronal and sagittal images were obtained. Findings: Large parenchymal hemorrhage is identified within the left posterior frontal and parietal regions on the left side. Small amount of blood extends to the cortex with some subarachnoid blood on the left side. Blood ruptures into the ventricular system with blood being seen within the lateral, third and fourth ventricles. There is midline shift being seen by approximately 1.2 cm. The main hemorrhage measures 6.2 x 5.2 x 8.4 cm. Diffuse low density is noted within the periventricular and subcortical white matter compatible with small vessel ischemic demyelination change. Bone window settings were reviewed which show no acute calvarial abnormality. Visualized paranasal sinuses and mastoid sinuses show nothing acute. No acute calvarial abnormality is appreciated. Impression: 1. Large parenchymal hemorrhage on the left side. This hemorrhage extends into the cortex causing subarachnoid blood as well as extends into the ventricular system causing intraventricular blood within the fourth, third and lateral ventricles. 2. Parenchymal hemorrhage causes midline shift of about 1.2 cm. 3. Senescent change as noted above. Diagnostic code #5
--- NOTE | 2020-05-03 18:04 | CR ---
Chest: Portable view of the chest was obtained. Comparison: Prior chest x-ray of 05/03/20. Sternotomy wires are noted. Bichamber pacemaker is seen. Scattered areas of scarring are noted. Slight increased density behind the left heart is seen presumably due to increased atelectasis. Lungs otherwise are clear. Endotracheal tube lies below the level of the clavicles at approximately 3 cm from the angelina. Nasogastric tube extends into the proximal stomach. Bony structures show nothing acute. Impression: 1. Endotracheal tube and nasogastric tube as noted above. 2. Mild areas of scarring within both lungs. Slight increased density behind the left heart compatible with increased atelectasis. 3. Other findings believed to be incidental as well. Diagnostic code #3
[2020-05-03] MEDS ORDERED: Labetalol 100 MG/20 ML MDV ONE (18:06)
[2020-05-03] MEDS ORDERED: Lactated Ringers 1,000 ML ONE (18:07)
[2020-05-03] MEDS ORDERED: niCARdipine HCl 25 MG in Sodium Chloride 0.9% 250 ML IV SCH (18:15)
[2020-05-03 18:31] LABS: CORONAVIRUS COVID-19 NAA NEGATIVE (NEGATIVE)
--- NOTE | 2020-05-03 18:48 | EDM.PDOC ---
ED HPI GENERAL MEDICAL PROBLEM - General Source of Information: Reports: EMS, Family History Limitations: Reports: Altered Mental Status - History of Present Illness Onset: Sudden Duration: Minutes: Improves with: Reports: None Worsens with: Reports: None Associated Symptoms: Reports: No Other Symptoms <Juan Carlos Love - Last Filed: 05/03/20 20:02> <Iam Mullins - Last Filed: 05/03/20 22:29> - General Chief Complaint: Trauma Stated Complaint: [facility] Time Seen by Provider: 05/03/20 17:17 - History of Present Illness INITIAL COMMENTS - FREE TEXT/NARRATIVE: The patient presents by [facility] for unresponsiveness and seizure like activity. The patient was here early this morning for a low grade temp, low back pain, chest pain and mild headache. He had a complete work up done and his WBC was elevated at 16. His D-dimer was elevated and a CT angiogram was done and that did not show any PE and no pneumonia. He did have a COVID 19 shot on Monday. No source for the temp and body aches were found. He was given some hydrocodone for pain. This evening he went unresponsive and had generalized seizures. EMS was called and they did give him narcan with no affect and ativan. He was being ventilated when he arrived. He was not responsive. (Juan Carlos Love) - Related Data Allergies Allergy/AdvReac Type Severity Reaction Status Date / Time No Known Allergies Allergy Verified 05/03/20 04:49 Home Meds: Home Meds Allopurinol [Zyloprim] 300 mg PO DAILY 01/23/17 [History] Aspirin [Ecotrin] 81 mg PO DAILY 01/23/17 [History] Clopidogrel Bisulfate [Plavix] 75 mg PO DAILY 01/23/17 [History] Isosorbide Mononitrate [Imdur] 30 mg PO DAILY 01/23/17 [History] Nitroglycerin [Nitrostat] 0.4 mg SL ASDIRECTED PRN 01/23/17 [History] Rosuvastatin [Crestor] 10 mg PO DAILY 01/23/17 [History] Codeine/guaiFENesin [guaiFENesin-Codeine Syrup] 5 ml PO Q6H PRN #1 cup 09/28/18 [Rx] Furosemide [Lasix] 40 mg PO BID 09/28/18 [History] Levothyroxine 75 mg PO DAILY 09/28/18 [History] Metoprolol Succinate [Toprol XL 50mg] 50 mg PO BID 09/28/18 [History] Pantoprazole Sodium [Protonix] 0 mg PO DAILY 09/28/18 [History] Sertraline [Zoloft] 25 mg PO DAILY 09/28/18 [History] Sildenafil Citrate 100 mg PO ASDIRECTED 09/28/18 [History] Hydrocodone/Acetaminophen [Hydrocodone-Acetamin 5-325 mg] 1 each PO Q6H PRN #15 tablet 05/03/20 [Rx] Past Medical History HEENT History: Reports: Impaired Vision Cardiovascular History: Reports: Bypass, CAD, Heart Failure, Heart Murmur, High Cholesterol, Hypertension, Stents, Other (See Below) Other Cardiovascular History: Aortic valve leak Respiratory History: Reports: SOB Genitourinary History: Reports: Acute Renal Failure Hematologic History: Reports: Anticoagulation Therapy - Infectious Disease History Infectious Disease History: Reports: Chicken Pox, Mumps - Past Surgical History HEENT Surgical History: Reports: Cataract Surgery Cardiovascular Surgical History: Reports: Coronary Artery Bypass, Other (See Below) Other Cardiovascular Surgeries/Procedures: ENDARECTOMY GI Surgical History: Reports: Cholecystectomy Musculoskeletal Surgical History: Reports: Knee Replacement Other Musculoskeletal Surgeries/Procedures:: right knee <Juan Carlos Love - Last Filed: 05/03/20 20:02> Social & Family History - Family History Family Medical History: No Pertinent Family History - Caffeine Use Caffeine Use: Reports: None <Juan Carlos Love - Last Filed: 05/03/20 20:02> Review of Systems - Review of Systems Review Of Systems: Unable To Obtain Reason Not Obtained: Patient is unresponsive <Juan Carlos Love - Last Filed: 05/03/20 20:02> ED EXAM, GENERAL - Physical Exam Exam: See Below Exam Limited By: Altered Mental Status General Appearance: Obtunded Ears: Normal External Exam Nose: Normal Inspection Throat/Mouth: Normal Inspection Head: Atraumatic, Normocephalic Neck: Normal Inspection Respiratory/Chest: Lungs Clear, Normal Breath Sounds, Other (Patiend is having his ventilations assisted) Cardiovascular: Regular Rate, Rhythm, No Edema, No Murmur GI/Abdominal: Soft, Non-Tender, No Organomegaly, No Mass Neurological: Other (Patient does not respond to painfull stimuli) <Juan Carlos Love A - Last Filed: 05/03/20 20:02> ED TRAUMA PROCEDURES - Endotracheal Intubation Time of Intubation: 18:00 ET Intubation Indication: Respiratory Failure, Airway Protection Preparation: Suction, Balloon Tested, BVM Set Up, Difficult Airway Equip Airway Assessment: Obese Pre-Oxygenation: Assisted with BVM Anesthesia Meds: Etomidate, Succinylcholine Placement: Orotracheal, Cuffed, Uncomplicated Placement Cords Visualized: Yes ETT Size In mm: 8 Number of Attempts: 1 Confirmed By: CO2 Indicator, Bilateral Breath Sounds, Chest Xray Tube Secured By: By RT <Juan Carlos Love A - Last Filed: 05/03/20 20:02> Course <Juan Carlos Love A - Last Filed: 05/03/20 20:02> <Iam Mullins A - Last Filed: 05/03/20 22:29> - Vital Signs Last Recorded V/S: Last Vital Signs Temp 39.4 C H 05/03/20 17:59 Pulse 86 05/03/20 17:29 Resp 4 L 05/03/20 17:29 BP 159/72 H 05/03/20 17:29 Pulse Ox 90 L 05/03/20 17:29 - Orders/Labs/Meds Orders: Active Orders 24 hr Category Date Time Status Cardiac Monitoring [RC] . DIRECTED Care 05/03/20 17:17 Active Peripheral IV Care [RC] . DIRECTED Care 05/03/20 17:18 Active RASS Sedation Scale [RC] ASDIRECTED Care 05/03/20 17:22 Active CULTURE BLOOD [BC] Stat Lab 05/03/20 17:21 Received CULTURE BLOOD [BC] Stat Lab 05/03/20 17:28 Received Sodium Chloride 0.9% [Normal Saline] 1,000 ml Med 05/03/20 17:30 Active IV .BOLUS Sodium Chloride 0.9% [Saline Flush] Med 05/03/20 17:17 Active 10 ml FLUSH ASDIRECTED PRN niCARdipine HCl [Nicardipine HCl] 25 mg Med 05/03/20 18:15 Active Sodium Chloride 0.9% [Normal Saline] 250 ml IV TITRATE propofoL [Diprivan 100 ML] 100 ml Med 05/03/20 17:30 Active IV TITRATE Blood Culture x2 Reflex Set [OM.PC] Stat Oth 05/03/20 17:18 Ordered Desired Level of Sedation (RASS) [AST] Click to Edit Oth 05/03/20 17:22 Ordered Peripheral IV Insertion Adult [OM.PC] Stat Oth 05/03/20 17:17 Ordered Medication Orders Sodium Chloride (Normal Saline) 1,000 mls @ 1,000 mls/hr IV .BOLUS MAURA Propofol (Diprivan 100 Ml) 100 mls @ 3 mls/hr IV TITRATE MAURA; Protocol Nicardipine HCl 25 mg/ Sodium (Chloride) 260 mls @ 52 mls/hr IV TITRATE MAURA; Protocol Last Admin: 05/03/20 18:25 Dose: 5 mg/hr, 52 mls/hr Documented by: TASIA Sodium Chloride (Saline Flush) 10 ml FLUSH ASDIRECTED PRN PRN Reason: Keep Vein Open Last Admin: 05/03/20 21:14 Dose: 10 ml Documented by: TASIA Labs: Laboratory Tests 05/03/20 05/03/20 05/03/20 Range/Units 17:15 17:15 17:15 WBC 17.27 H (4.23-9.07) K/mm3 RBC 4.89 (4.63-6.08) M/mm3 Hgb 14.7 (13.7-17.5) gm/dl Hct 44.8 (40.1-51.0) % MCV 91.6 (79.0-92.2) fl MCH 30.1 (25.7-32.2) pg MCHC 32.8 (32.2-35.5) g/dl RDW Std Deviation 47.3 H (35.1-43.9) fL Plt Count 126 L (163-337) K/mm3 MPV 9.5 (9.4-12.3) fl Neut % (Auto) 89.0 H (34.0-67.9) % Lymph % (Auto) 5.6 L (21.8-53.1) % [place] % (Auto) 4.9 L (5.3-12.2) % Eos % (Auto) 0 L (0.8-7.0) Baso % (Auto) 0.2 (0.1-1.2) % Neut # (Auto) 15.38 H (1.78-5.38) K/mm3 Lymph # (Auto) 0.96 L (1.32-3.57) K/mm3 [place] # (Auto) 0.85 H (0.30-0.82) K/mm3 Eos # (Auto) 0.00 L (0.04-0.54) K/mm3 Baso # (Auto) 0.03 (0.01-0.08) K/mm3 Manual Slide Review Abnormal smear PT 12.4 H (9.7-12.0) SECONDS INR 1.16 APTT 29.3 (21.7-31.4) SECONDS D-Dimer, Quantitative 1.74 H (0.19-0.50) mg/L Sodium 136 (136-145) mEq/L Potassium 3.4 L (3.5-5.1) mEq/L Chloride 99 (98-107) mEq/L Carbon Dioxide 22 (21-32) mEq/L Anion Gap 18.4 H (5-15) BUN 22 H (7-18) mg/dL Creatinine 1.9 H (0.7-1.3) mg/dL Est Cr Clr Drug Dosing TNP Estimated GFR (MDRD) 34 (>60) mL/min BUN/Creatinine Ratio 11.6 L (14-18) Glucose 218 H (83-115) mg/dL Lactic Acid (0.4-2.0) mmol/L Calcium 8.8 (8.5-10.1) mg/dL Magnesium 1.5 L (1.8-2.4) mg/dl Total Bilirubin 1.5 H (0.2-1.0) mg/dL AST 31 (15-37) U/L ALT 27 (16-63) U/L Alkaline Phosphatase 178 H (46-116) U/L Troponin I 0.384 H* (0.00-0.056) ng/mL C-Reactive Protein 16.2 H* (<1.0) mg/dL Total Protein 8.0 (6.4-8.2) g/dl Albumin 3.2 L (3.4-5.0) g/dl Globulin 4.8 gm/dL Albumin/Globulin Ratio 0.7 L (1-2) Urine Color (Yellow) Urine Appearance (Clear) Urine pH (5.0-8.0) Ur Specific [place] (1.005-1.030) Urine Protein (Negative) Urine Glucose (UA) (Negative) Urine Ketones (Negative) Urine Occult Blood (Negative) Urine Nitrite (Negative) Urine Bilirubin (Negative) Urine Urobilinogen (0.2-1.0) Ur Leukocyte Esterase (Negative) Urine RBC (0-5) /hpf Urine WBC (0-5) /hpf Ur Squamous Epith Cells (0-5) /hpf Amorphous Sediment (NOT SEEN) /hpf Urine Bacteria (FEW) /hpf Urine Mucus (FEW) /hpf Influenza Type A RNA (NEGATIVE) Influenza Type B RNA (NEGATIVE) SARS-CoV-2 RNA (DAMION) (NEGATIVE) 05/03/20 05/03/20 05/03/20 Range/Units 17:15 17:20 17:28 WBC (4.23-9.07) K/mm3 RBC (4.63-6.08) M/mm3 Hgb (13.7-17.5) gm/dl Hct (40.1-51.0) % MCV (79.0-92.2) fl MCH (25.7-32.2) pg MCHC (32.2-35.5) g/dl RDW Std Deviation (35.1-43.9) fL Plt Count (163-337) K/mm3 MPV (9.4-12.3) fl Neut % (Auto) (34.0-67.9) % Lymph % (Auto) (21.8-53.1) % [place] % (Auto) (5.3-12.2) % Eos % (Auto) (0.8-7.0) Baso % (Auto) (0.1-1.2) % Neut # (Auto) (1.78-5.38) K/mm3 Lymph # (Auto) (1.32-3.57) K/mm3 [place] # (Auto) (0.30-0.82) K/mm3 Eos # (Auto) (0.04-0.54) K/mm3 Baso # (Auto) (0.01-0.08) K/mm3 Manual Slide Review PT (9.7-12.0) SECONDS INR APTT (21.7-31.4) SECONDS D-Dimer, Quantitative (0.19-0.50) mg/L Sodium (136-145) mEq/L Potassium (3.5-5.1) mEq/L Chloride (98-107) mEq/L Carbon Dioxide (21-32) mEq/L Anion Gap (5-15) BUN (7-18) mg/dL Creatinine (0.7-1.3) mg/dL Est Cr Clr Drug Dosing Estimated GFR (MDRD) (>60) mL/min BUN/Creatinine Ratio (14-18) Glucose (83-115) mg/dL Lactic Acid 2.6 H* (0.4-2.0) mmol/L Calcium (8.5-10.1) mg/dL Magnesium (1.8-2.4) mg/dl Total Bilirubin (0.2-1.0) mg/dL AST (15-37) U/L ALT (16-63) U/L Alkaline Phosphatase (46-116) U/L Troponin I (0.00-0.056) ng/mL C-Reactive Protein (<1.0) mg/dL Total Protein (6.4-8.2) g/dl Albumin (3.4-5.0) g/dl Globulin gm/dL Albumin/Globulin Ratio (1-2) Urine Color Yellow (Yellow) Urine Appearance Clear (Clear) Urine pH 6.0 (5.0-8.0) Ur Specific [place] 1.020 (1.005-1.030) Urine Protein 3+ H (Negative) Urine Glucose (UA) Negative (Negative) Urine Ketones Trace H (Negative) Urine Occult Blood 2+ H (Negative) Urine Nitrite Negative (Negative) Urine Bilirubin Negative (Negative) Urine Urobilinogen 1.0 (0.2-1.0) Ur Leukocyte Esterase Negative (Negative) Urine RBC 10-20 H (0-5) /hpf Urine WBC 0-5 (0-5) /hpf Ur Squamous Epith Cells Not seen (0-5) /hpf Amorphous Sediment Few H (NOT SEEN) /hpf Urine Bacteria Few (FEW) /hpf Urine Mucus Not seen (FEW) /hpf Influenza Type A RNA Negative (NEGATIVE) Influenza Type B RNA Negative (NEGATIVE) SARS-CoV-2 RNA (DAMION) Negative (NEGATIVE) Meds: Medications Generic Name Dose Route Start Last Admin Trade Name Freq PRN Reason Stop Dose Admin Sodium Chloride 1,000 mls @ 1,000 mls/hr 05/03/20 17:30 Normal Saline IV .BOLUS MAURA Propofol 100 mls @ 3 mls/hr 05/03/20 17:30 Diprivan 100 Ml IV TITRATE MAURA Protocol 5 MCG/KG/MIN Nicardipine HCl 25 mg/ Sodium 260 mls @ 52 mls/hr 05/03/20 18:15 05/03/20 18:25 Chloride IV 5 mg/hr TITRATE MAURA 52 mls/hr Administration Protocol 5 MG/HR Sodium Chloride 10 ml 05/03/20 17:17 05/03/20 21:14 Saline Flush FLUSH 10 ml ASDIRECTED PRN Administration Keep Vein Open Discontinued Medications Generic Name Dose Route Start Last Admin Trade Name Freq PRN Reason Stop Dose Admin Acetaminophen 650 mg 05/03/20 17:41 05/03/20 17:59 Tylenol RECTAL 05/03/20 17:42 650 mg NOW ONE Administration Etomidate 20 mg 05/03/20 17:20 05/03/20 19:44 Amidate IVPUSH 05/03/20 17:21 20 mg ONETIME ONE Administration Ceftriaxone Sodium 2 gm/ 100 mls @ 200 mls/hr 05/03/20 17:19 05/03/20 18:52 Sodium Chloride IV 05/03/20 17:48 200 mls/hr ONETIME ONE Administration Lactated Ringer's Confirm 05/03/20 18:07 05/03/20 19:10 Ringers, Lactated Administered 05/03/20 18:08 150 mls/hr Dose Administration 1,000 mls @ as directed .ROUTE .STK-MED ONE Labetalol HCl Confirm 05/03/20 18:06 05/03/20 19:02 Normodyne Administered 05/03/20 18:07 Not Given Dose 100 mg .ROUTE .STK-MED ONE Midazolam HCl 5 mg 05/03/20 17:21 05/03/20 18:53 Versed 1 Mg/Ml IVPUSH 05/03/20 17:22 5 mg ONETIME ONE Administration Rocuronium [place] 70 mg 05/03/20 17:21 05/03/20 17:24 Zemuron IVPUSH 05/03/20 17:22 70 mg ONETIME ONE Administration Succinylcholine Chloride 120 mg 05/03/20 17:20 05/03/20 20:48 Quelicin IV 05/03/20 17:21 120 mg ONETIME ONE Administration - Re-Assessments/Exams Free Text/Narrative Re-Assessment/Exam: 05/03/20 18:51 The patient was unresponsive and not responding to painful stimuli. His respirations were being assisted. I elected to intubate the patient. I used etomidate 20mg IV and succinylcholine and RSI. I used an 8-0 tube and he was intubated without difficulty. I also put in an NG tube. Tube placement was confirmed by CXR and auscultation. I ordered a CT of his head, labs, lactic acid and blood cultures. I ordered versed 5mg IV and rocuronium 70mg to keep him sedated. I then ordered propofol for sedation. The CT of his head shows a large parenchymal hemorrhage on the left side. This hemorrhage extends into the cortex causing subarachnoid blood as well as extends into the ventricular system causing intraventricular blood within the fourth, third and lateral ventricles. Parenchymal hemorrhage causes midline shift of about 1.2cm. Senescent changes. I talked with the family and called [facility] in [place] and talked with the neurosurgeon transportation analyst and he said there was no hope for the patient. He will from this bleed. There is nothing he can do for the patient. He wanted me to keep him here and let him . I talked with the family and they came to see the patient and father Rebekah is here to see the patient. When he is done I will take him off the vent and give him some morphine to keep him comfortable. 05/03/20 19:01 His WBC was elevated at 17.27. His PT was 12.4. His Ptt was elevated at 29.3. His D-dimer is elevated at 1.74. His K was low at 3.4. His anion gap is elevated at 18.4. His creatinine is elevated at 1.9. His glucose was 218. His lactic acid was elevated at 2.6. His magnesium was a little low at 1.5. His total bili is elevated at 1.5. His alk phos was elevated at 178. His troponin was elevated at 0.384. His CRP was 16.2. His UA shows no UTI. His COVID 19 was negative along with his influenza. 05/03/20 19:53 Critical care time is 1 hour. 05/03/20 20:02 The family want me to wait to extubate him until his granddaughter comes. She is coming from [place]. Dr Mullins to take over. (Juan Carlos Love) 05/03/20 20:41 Notified by Latasha MCDANIEL that the patient's granddaughter had arrived, and that the family was ready for the patient to be extubated. His propofol drip was reduced to 1 microgram per kilogram per minute. With RT in attendance, the endotracheal tube cuff was deflated and the ET tube removed. The NG tube will also be removed. 05/03/20 21:54 The patient is still with us. I am wondering if the family might be more comfortable if we were to place the patient into observation where he could receive comfort care. I discussed this with Dr. Lord, who is agreeable. 05/03/20 21:55 Notified that there may not be any beds on Med-Surg. I will talk to the charge nurse. 05/03/20 22:24 Case discussed with Keila MCDANIEL. A bed is available. We will transfer the patient to the floor. 05/03/20 22:29 Notified that in order to be on the medical floor, the patient cannot be on a propofol drip. The propofol will therefore be discontinued, and if the patient develops signs of respiratory distress on the floor, morphine can be ordered by Dr. Lord, which is acceptable on the floor. (Iam Mullins) Departure <Juan Carlos Love - Last Filed: 05/03/20 20:02> - Departure Time of Disposition: 22:25 Condition: Critical <Iam Mullins - Last Filed: 05/03/20 22:29> - Departure Disposition: Refer to Observation Clinical Impression: Intracranial hemorrhage - Discharge Information Referrals: Sam Neff MD [Primary Care Provider] - Forms: ED Department Discharge Sepsis Event Note (ED) - Evaluation Sepsis Screening Result: No Definite Risk <Juan Carlos Love - Last Filed: 05/03/20 20:02> - Focused Exam Vital Signs: Vital Signs Temp Temp Pulse Resp BP Pulse Ox 05/03/20 17:59 39.4 C H 05/03/20 17:29 39.4 C H 86 4 L 159/72 H 90 L
[2020-05-03] MEDS: Morphine 2 MG/ML SYRINGE ONE (23:38)
--- NOTE | 2020-05-03 23:55 | PCM.HP.2 ---
H&P History of Present Illness - General Date of Service: 05/03/20 Admit Problem/Dx: Admission Diagnosis/Problem Admission Diagnosis/Problem Subarachnoid hemorrhage - History of Present Illness Initial Comments - Free Text/Narative: 84-year-old male with history of Coronary artery disease, bypass surgery, multiple stents hypothyroidism on aspirin and Plavix presents to the emergency department with acute unresponsiveness and seizure-like activity. Patient was brought in by [facility] after family witnessing unresponsive with general seizure. Patient was seen here last night with low-grade temperature, back pain, chest pain, and headache. Thorough work-up was performed including a CT angiogram and the only significant finding was a white count elevated at 16,000. Patient was given some hydrocodone for pain and sent home. EMS did tried Narcan in the field without success. Patient did get that COVID-19 vaccine on Monday. It appears after talking to the family he started having headaches though approximately 1 week ago. He had increasing fatigue, fever, chills throughout the week. Patient was intubated and ventilated in route to the emergency department. In the emergency department patient was found to be obtunded on a ventilator. CT of the head showed a large parenchymal hemorrhage on the left side. The hemorrhage extends into the cortex causing subarachnoid blood as well as extends into the ventricular system causing intraventricular blood within the fourth, third, and lateral ventricles. Parenchymal hemorrhage causes midline shift of about 1.2 cm. Neurosurgery at [facility] in [place] was consulted and the surgeon, I do not have his name, stated that his findings are incompatible with life. Emergency room physician discussed the findings with the family and patient was extubated after receiving last rights from father Rebekah. Patient was then brought to the medical floor for comfort measures. - Related Data Allergies/Adverse Reactions: Allergies Allergy/AdvReac Type Severity Reaction Status Date / Time No Known Allergies Allergy Verified 05/03/20 04:49 Home Medications: Home Meds Allopurinol [Zyloprim] 300 mg PO DAILY 01/23/17 [History] Aspirin [Ecotrin] 81 mg PO DAILY 01/23/17 [History] Clopidogrel Bisulfate [Plavix] 75 mg PO DAILY 01/23/17 [History] Isosorbide Mononitrate [Imdur] 30 mg PO DAILY 01/23/17 [History] Nitroglycerin [Nitrostat] 0.4 mg SL ASDIRECTED PRN 01/23/17 [History] Rosuvastatin [Crestor] 10 mg PO DAILY 01/23/17 [History] Codeine/guaiFENesin [guaiFENesin-Codeine Syrup] 5 ml PO Q6H PRN #1 cup 09/28/18 [Rx] Furosemide [Lasix] 40 mg PO BID 09/28/18 [History] Levothyroxine 75 mg PO DAILY 09/28/18 [History] Metoprolol Succinate [Toprol XL 50mg] 50 mg PO BID 09/28/18 [History] Pantoprazole Sodium [Protonix] 0 mg PO DAILY 09/28/18 [History] Sertraline [Zoloft] 25 mg PO DAILY 09/28/18 [History] Sildenafil Citrate 100 mg PO ASDIRECTED 09/28/18 [History] Hydrocodone/Acetaminophen [Hydrocodone-Acetamin 5-325 mg] 1 each PO Q6H PRN #15 tablet 05/03/20 [Rx] Past Medical History HEENT History: Reports: Impaired Vision Cardiovascular History: Reports: Bypass, CAD, Heart Failure, Heart Murmur, High Cholesterol, Hypertension, Stents, Other (See Below) Other Cardiovascular History: Aortic valve leak Respiratory History: Reports: SOB Genitourinary History: Reports: Acute Renal Failure Hematologic History: Reports: Anticoagulation Therapy - Infectious Disease History Infectious Disease History: Reports: Chicken Pox, Mumps - Past Surgical History HEENT Surgical History: Reports: Cataract Surgery Cardiovascular Surgical History: Reports: Coronary Artery Bypass, Other (See Below) Other Cardiovascular Surgeries/Procedures: ENDARECTOMY GI Surgical History: Reports: Cholecystectomy Musculoskeletal Surgical History: Reports: Knee Replacement Other Musculoskeletal Surgeries/Procedures:: right knee Social & Family History - Family History Family Medical History: No Pertinent Family History - Tobacco Use Tobacco Use Status *Q: Unknown Ever Used Tobacco - Caffeine Use Caffeine Use: Reports: Other Other Caffeine Use: unable to obtain due to pt condition - Recreational Drug Use Recreational Drug Use: No H&P Review of Systems - Review of Systems: Review Of Systems: Unable To Obtain Reason Not Obtained: Obtunded Exam - Exam Exam: See Below - Vital Signs Vital Signs: Last Vital Signs Temp 103 F H 05/03/20 17:59 Pulse 86 05/03/20 17:29 Resp 4 L 05/03/20 17:29 BP 159/72 H 05/03/20 17:29 Pulse Ox 90 L 05/03/20 17:29 Weight: 220 lb - Exam Quality Assessment: No: Supplemental Oxygen General: Severe Distress, Obtunded, Other (Agonal breathing) Lungs: Other (Agonal breathing) Cardiovascular: Regular Rate, Regular Rhythm - Patient Data Lab Results Last 24 hrs: Laboratory Results - last 24 hr 05/03/20 05/03/20 05/03/20 Range/Units 17:15 17:15 17:15 WBC 17.27 H (4.23-9.07) K/mm3 RBC 4.89 (4.63-6.08) M/mm3 Hgb 14.7 (13.7-17.5) gm/dl Hct 44.8 (40.1-51.0) % MCV 91.6 (79.0-92.2) fl MCH 30.1 (25.7-32.2) pg MCHC 32.8 (32.2-35.5) g/dl RDW Std Deviation 47.3 H (35.1-43.9) fL Plt Count 126 L (163-337) K/mm3 MPV 9.5 (9.4-12.3) fl Neut % (Auto) 89.0 H (34.0-67.9) % Lymph % (Auto) 5.6 L (21.8-53.1) % Hamlin % (Auto) 4.9 L (5.3-12.2) % Eos % (Auto) 0 L (0.8-7.0) Baso % (Auto) 0.2 (0.1-1.2) % Neut # (Auto) 15.38 H (1.78-5.38) K/mm3 Lymph # (Auto) 0.96 L (1.32-3.57) K/mm3 Hamlin # (Auto) 0.85 H (0.30-0.82) K/mm3 Eos # (Auto) 0.00 L (0.04-0.54) K/mm3 Baso # (Auto) 0.03 (0.01-0.08) K/mm3 Manual Slide Review Abnormal smear PT 12.4 H (9.7-12.0) SECONDS INR 1.16 APTT 29.3 (21.7-31.4) SECONDS D-Dimer, Quantitative 1.74 H (0.19-0.50) mg/L Sodium 136 (136-145) mEq/L Potassium 3.4 L (3.5-5.1) mEq/L Chloride 99 (98-107) mEq/L Carbon Dioxide 22 (21-32) mEq/L Anion Gap 18.4 H (5-15) BUN 22 H (7-18) mg/dL Creatinine 1.9 H (0.7-1.3) mg/dL Est Cr Clr Drug Dosing TNP Estimated GFR (MDRD) 34 (>60) mL/min BUN/Creatinine Ratio 11.6 L (14-18) Glucose 218 H (83-115) mg/dL Lactic Acid (0.4-2.0) mmol/L Calcium 8.8 (8.5-10.1) mg/dL Magnesium 1.5 L (1.8-2.4) mg/dl Total Bilirubin 1.5 H (0.2-1.0) mg/dL AST 31 (15-37) U/L ALT 27 (16-63) U/L Alkaline Phosphatase 178 H (46-116) U/L Troponin I 0.384 H* (0.00-0.056) ng/mL C-Reactive Protein 16.2 H* (<1.0) mg/dL Total Protein 8.0 (6.4-8.2) g/dl Albumin 3.2 L (3.4-5.0) g/dl Globulin 4.8 gm/dL Albumin/Globulin Ratio 0.7 L (1-2) Urine Color (Yellow) Urine Appearance (Clear) Urine pH (5.0-8.0) Ur Specific Lincoln (1.005-1.030) Urine Protein (Negative) Urine Glucose (UA) (Negative) Urine Ketones (Negative) Urine Occult Blood (Negative) Urine Nitrite (Negative) Urine Bilirubin (Negative) Urine Urobilinogen (0.2-1.0) Ur Leukocyte Esterase (Negative) Urine RBC (0-5) /hpf Urine WBC (0-5) /hpf Ur Squamous Epith Cells (0-5) /hpf Amorphous Sediment (NOT SEEN) /hpf Urine Bacteria (FEW) /hpf Urine Mucus (FEW) /hpf Influenza Type A RNA (NEGATIVE) Influenza Type B RNA (NEGATIVE) SARS-CoV-2 RNA (DAMION) (NEGATIVE) 05/03/20 05/03/20 05/03/20 Range/Units 17:15 17:20 17:28 WBC (4.23-9.07) K/mm3 RBC (4.63-6.08) M/mm3 Hgb (13.7-17.5) gm/dl Hct (40.1-51.0) % MCV (79.0-92.2) fl MCH (25.7-32.2) pg MCHC (32.2-35.5) g/dl RDW Std Deviation (35.1-43.9) fL Plt Count (163-337) K/mm3 MPV (9.4-12.3) fl Neut % (Auto) (34.0-67.9) % Lymph % (Auto) (21.8-53.1) % Hamlin % (Auto) (5.3-12.2) % Eos % (Auto) (0.8-7.0) Baso % (Auto) (0.1-1.2) % Neut # (Auto) (1.78-5.38) K/mm3 Lymph # (Auto) (1.32-3.57) K/mm3 Hamlin # (Auto) (0.30-0.82) K/mm3 Eos # (Auto) (0.04-0.54) K/mm3 Baso # (Auto) (0.01-0.08) K/mm3 Manual Slide Review PT (9.7-12.0) SECONDS INR APTT (21.7-31.4) SECONDS D-Dimer, Quantitative (0.19-0.50) mg/L Sodium (136-145) mEq/L Potassium (3.5-5.1) mEq/L Chloride (98-107) mEq/L Carbon Dioxide (21-32) mEq/L Anion Gap (5-15) BUN (7-18) mg/dL Creatinine (0.7-1.3) mg/dL Est Cr Clr Drug Dosing Estimated GFR (MDRD) (>60) mL/min BUN/Creatinine Ratio (14-18) Glucose (83-115) mg/dL Lactic Acid 2.6 H* (0.4-2.0) mmol/L Calcium (8.5-10.1) mg/dL Magnesium (1.8-2.4) mg/dl Total Bilirubin (0.2-1.0) mg/dL AST (15-37) U/L ALT (16-63) U/L Alkaline Phosphatase (46-116) U/L Troponin I (0.00-0.056) ng/mL C-Reactive Protein (<1.0) mg/dL Total Protein (6.4-8.2) g/dl Albumin (3.4-5.0) g/dl Globulin gm/dL Albumin/Globulin Ratio (1-2) Urine Color Yellow (Yellow) Urine Appearance Clear (Clear) Urine pH 6.0 (5.0-8.0) Ur Specific Lincoln 1.020 (1.005-1.030) Urine Protein 3+ H (Negative) Urine Glucose (UA) Negative (Negative) Urine Ketones Trace H (Negative) Urine Occult Blood 2+ H (Negative) Urine Nitrite Negative (Negative) Urine Bilirubin Negative (Negative) Urine Urobilinogen 1.0 (0.2-1.0) Ur Leukocyte Esterase Negative (Negative) Urine RBC 10-20 H (0-5) /hpf Urine WBC 0-5 (0-5) /hpf Ur Squamous Epith Cells Not seen (0-5) /hpf Amorphous Sediment Few H (NOT SEEN) /hpf Urine Bacteria Few (FEW) /hpf Urine Mucus Not seen (FEW) /hpf Influenza Type A RNA Negative (NEGATIVE) Influenza Type B RNA Negative (NEGATIVE) SARS-CoV-2 RNA (DAMION) Negative (NEGATIVE) Result Diagrams: 05/03/20 17:15 05/03/20 17:15 Sepsis Event Note - Evaluation Sepsis Screening Result: No Definite Risk - Focused Exam Vital Signs: Vital Signs Temp Temp Pulse Resp BP Pulse Ox 05/03/20 17:59 103 F H 05/03/20 17:29 103.0 F H 86 4 L 159/72 H 90 L - Problem List (1) Intracranial hemorrhage SNOMED Code(s): 9568302 ICD Code: I62.9 - NONTRAUMATIC INTRACRANIAL HEMORRHAGE, UNSPECIFIED Status: Acute Current Visit: Yes Problem List Initiated/Reviewed/Updated: Yes Orders Last 24hrs: Active Orders 24 hr Category Date Time Status Patient Status [ADT] Routine ADT 05/03/20 22:32 Active Cardiac Monitoring [RC] . DIRECTED Care 05/03/20 17:17 Active Peripheral IV Care [RC] . DIRECTED Care 05/03/20 17:18 Active RASS Sedation Scale [RC] ASDIRECTED Care 05/03/20 17:22 Active CULTURE BLOOD [BC] Stat Lab 05/03/20 17:21 Received CULTURE BLOOD [BC] Stat Lab 05/03/20 17:28 Received Sodium Chloride 0.9% [Normal Saline] 1,000 ml Med 05/03/20 17:30 Active IV .BOLUS Sodium Chloride 0.9% [Saline Flush] Med 05/03/20 17:17 Active 10 ml FLUSH ASDIRECTED PRN niCARdipine HCl [Nicardipine HCl] 25 mg Med 05/03/20 18:15 Active Sodium Chloride 0.9% [Normal Saline] 250 ml IV TITRATE propofoL [Diprivan 100 ML] 100 ml Med 05/03/20 17:30 Active IV TITRATE Blood Culture x2 Reflex Set [OM.PC] Stat Oth 05/03/20 17:18 Ordered Desired Level of Sedation (RASS) [AST] Click to Edit Oth 05/03/20 17:22 Ordered Peripheral IV Insertion Adult [OM.PC] Stat Oth 05/03/20 17:17 Ordered Medication Orders Sodium Chloride (Normal Saline) 1,000 mls @ 1,000 mls/hr IV .BOLUS MAURA Propofol (Diprivan 100 Ml) 100 mls @ 3 mls/hr IV TITRATE MAURA; Protocol Nicardipine HCl 25 mg/ Sodium (Chloride) 260 mls @ 52 mls/hr IV TITRATE MAURA; Protocol Last Admin: 05/03/20 18:25 Dose: 5 mg/hr, 52 mls/hr Documented by: TASIA Sodium Chloride (Saline Flush) 10 ml FLUSH ASDIRECTED PRN PRN Reason: Keep Vein Open Last Admin: 05/03/20 21:14 Dose: 10 ml Documented by: HERMMIC Assessment/Plan Comment:: Assessment 84-year-old male with severe vascular disease presents to the emergency department via EMS after being found unresponsive and seizing. * CT of the head showed large parenchymal hemorrhage on the left. * Neurosurgery consulted and felt this was incompatible with life and it was not amiable to treatment * Family is at bedside. * Patient received COVID-19 vaccination 4 days ago Plan * Admit for observation * Morphine for respiratory distress and pain. * Comfort measures * Life expectancy less than 24 hours. - Mortality Measure Prognosis:: Poor
[2020-05-04] MEDS ORDERED: Morphine 2 MG/ML SYRINGE ONE (00:02)
[2020-05-04] MEDS: Morphine 2 MG/ML SYRINGE ONE (00:05)
[2020-05-04] MEDS ORDERED: LORazepam 2 MG/ML SDV IV PRN (00:47)
[2020-05-04] MEDS ORDERED: Ondansetron 4 MG/2 ML SDV IV PRN (00:47)
[2020-05-04] MEDS: Morphine 2 MG/ML SYRINGE IVPUSH PRN ×6 (02:39→22:39)
[2020-05-04] MEDS: Acetaminophen 650 MG Supp RECTAL PRN ×3 (05:03→21:15)
[2020-05-04] MEDS ORDERED: Scopolamine 1.5 MG Transdermal Patch TRDERM PRN (07:55)
--- NOTE | 2020-05-04 11:12 | PCM.PN ---
<Madhu Wong - Last Filed: 05/04/20 12:13> - General Info Date of Service: 05/04/20 Admission Dx/Problem (Free Text): Admission Diagnosis/Problem Admission Diagnosis/Problem Subarachnoid hemorrhage Subjective Update: In to see [place]. Family is at bedside. Patient has gurgling respirations and we discussed how this is part of the dying process. Scopolamine patch has been ordered this morning and we will add as needed atropine drops for excessive secretions. Patient has been very warm to touch and diaphoretic with a temperature of 104. Family is requesting another dose of rectal Tylenol and nursing is made aware of this. All questions answered. Family is very aware of patient's grim prognosis and pending demise. - Review of Systems Systems Review Comment:: Patient obtunded - unable to obtain ROS. Family notes patient is febrile with gurgling secretions. - Patient Data Vitals - Most Recent: Last Vital Signs Temp 104.0 F H 05/04/20 05:03 Pulse 95 05/03/20 23:14 Resp 40 H 05/04/20 08:41 BP 171/79 H 05/03/20 23:14 Pulse Ox 93 L 05/03/20 23:14 Weight - Most Recent: 113.126 kg I&O - Last 24 Hours: Intake & Output 05/03/20 05/04/20 05/04/20 22:59 06:59 14:59 Intake Total 0 Output Total 300 Balance -300 Lab Results Last 24 Hours: Laboratory Results - last 24 hr 05/03/20 05/03/20 05/03/20 Range/Units 17:15 17:15 17:15 WBC 17.27 H (4.23-9.07) K/mm3 RBC 4.89 (4.63-6.08) M/mm3 Hgb 14.7 (13.7-17.5) gm/dl Hct 44.8 (40.1-51.0) % MCV 91.6 (79.0-92.2) fl MCH 30.1 (25.7-32.2) pg MCHC 32.8 (32.2-35.5) g/dl RDW Std Deviation 47.3 H (35.1-43.9) fL Plt Count 126 L (163-337) K/mm3 MPV 9.5 (9.4-12.3) fl Neut % (Auto) 89.0 H (34.0-67.9) % Lymph % (Auto) 5.6 L (21.8-53.1) % [place] % (Auto) 4.9 L (5.3-12.2) % Eos % (Auto) 0 L (0.8-7.0) Baso % (Auto) 0.2 (0.1-1.2) % Neut # (Auto) 15.38 H (1.78-5.38) K/mm3 Lymph # (Auto) 0.96 L (1.32-3.57) K/mm3 [place] # (Auto) 0.85 H (0.30-0.82) K/mm3 Eos # (Auto) 0.00 L (0.04-0.54) K/mm3 Baso # (Auto) 0.03 (0.01-0.08) K/mm3 Manual Slide Review Abnormal smear PT 12.4 H (9.7-12.0) SECONDS INR 1.16 APTT 29.3 (21.7-31.4) SECONDS D-Dimer, Quantitative 1.74 H (0.19-0.50) mg/L Sodium 136 (136-145) mEq/L Potassium 3.4 L (3.5-5.1) mEq/L Chloride 99 (98-107) mEq/L Carbon Dioxide 22 (21-32) mEq/L Anion Gap 18.4 H (5-15) BUN 22 H (7-18) mg/dL Creatinine 1.9 H (0.7-1.3) mg/dL Est Cr Clr Drug Dosing TNP Estimated GFR (MDRD) 34 (>60) mL/min BUN/Creatinine Ratio 11.6 L (14-18) Glucose 218 H (83-115) mg/dL Lactic Acid (0.4-2.0) mmol/L Calcium 8.8 (8.5-10.1) mg/dL Magnesium 1.5 L (1.8-2.4) mg/dl Total Bilirubin 1.5 H (0.2-1.0) mg/dL AST 31 (15-37) U/L ALT 27 (16-63) U/L Alkaline Phosphatase 178 H (46-116) U/L Troponin I 0.384 H* (0.00-0.056) ng/mL C-Reactive Protein 16.2 H* (<1.0) mg/dL Total Protein 8.0 (6.4-8.2) g/dl Albumin 3.2 L (3.4-5.0) g/dl Globulin 4.8 gm/dL Albumin/Globulin Ratio 0.7 L (1-2) Urine Color (Yellow) Urine Appearance (Clear) Urine pH (5.0-8.0) Ur Specific [place] (1.005-1.030) Urine Protein (Negative) Urine Glucose (UA) (Negative) Urine Ketones (Negative) Urine Occult Blood (Negative) Urine Nitrite (Negative) Urine Bilirubin (Negative) Urine Urobilinogen (0.2-1.0) Ur Leukocyte Esterase (Negative) Urine RBC (0-5) /hpf Urine WBC (0-5) /hpf Ur Squamous Epith Cells (0-5) /hpf Amorphous Sediment (NOT SEEN) /hpf Urine Bacteria (FEW) /hpf Urine Mucus (FEW) /hpf Influenza Type A RNA (NEGATIVE) Influenza Type B RNA (NEGATIVE) SARS-CoV-2 RNA (DAMION) (NEGATIVE) 05/03/20 05/03/20 05/03/20 Range/Units 17:15 17:20 17:28 WBC (4.23-9.07) K/mm3 RBC (4.63-6.08) M/mm3 Hgb (13.7-17.5) gm/dl Hct (40.1-51.0) % MCV (79.0-92.2) fl MCH (25.7-32.2) pg MCHC (32.2-35.5) g/dl RDW Std Deviation (35.1-43.9) fL Plt Count (163-337) K/mm3 MPV (9.4-12.3) fl Neut % (Auto) (34.0-67.9) % Lymph % (Auto) (21.8-53.1) % [place] % (Auto) (5.3-12.2) % Eos % (Auto) (0.8-7.0) Baso % (Auto) (0.1-1.2) % Neut # (Auto) (1.78-5.38) K/mm3 Lymph # (Auto) (1.32-3.57) K/mm3 [place] # (Auto) (0.30-0.82) K/mm3 Eos # (Auto) (0.04-0.54) K/mm3 Baso # (Auto) (0.01-0.08) K/mm3 Manual Slide Review PT (9.7-12.0) SECONDS INR APTT (21.7-31.4) SECONDS D-Dimer, Quantitative (0.19-0.50) mg/L Sodium (136-145) mEq/L Potassium (3.5-5.1) mEq/L Chloride (98-107) mEq/L Carbon Dioxide (21-32) mEq/L Anion Gap (5-15) BUN (7-18) mg/dL Creatinine (0.7-1.3) mg/dL Est Cr Clr Drug Dosing Estimated GFR (MDRD) (>60) mL/min BUN/Creatinine Ratio (14-18) Glucose (83-115) mg/dL Lactic Acid 2.6 H* (0.4-2.0) mmol/L Calcium (8.5-10.1) mg/dL Magnesium (1.8-2.4) mg/dl Total Bilirubin (0.2-1.0) mg/dL AST (15-37) U/L ALT (16-63) U/L Alkaline Phosphatase (46-116) U/L Troponin I (0.00-0.056) ng/mL C-Reactive Protein (<1.0) mg/dL Total Protein (6.4-8.2) g/dl Albumin (3.4-5.0) g/dl Globulin gm/dL Albumin/Globulin Ratio (1-2) Urine Color Yellow (Yellow) Urine Appearance Clear (Clear) Urine pH 6.0 (5.0-8.0) Ur Specific [place] 1.020 (1.005-1.030) Urine Protein 3+ H (Negative) Urine Glucose (UA) Negative (Negative) Urine Ketones Trace H (Negative) Urine Occult Blood 2+ H (Negative) Urine Nitrite Negative (Negative) Urine Bilirubin Negative (Negative) Urine Urobilinogen 1.0 (0.2-1.0) Ur Leukocyte Esterase Negative (Negative) Urine RBC 10-20 H (0-5) /hpf Urine WBC 0-5 (0-5) /hpf Ur Squamous Epith Cells Not seen (0-5) /hpf Amorphous Sediment Few H (NOT SEEN) /hpf Urine Bacteria Few (FEW) /hpf Urine Mucus Not seen (FEW) /hpf Influenza Type A RNA Negative (NEGATIVE) Influenza Type B RNA Negative (NEGATIVE) SARS-CoV-2 RNA (DAMION) Negative (NEGATIVE) Eddie Results Last 24 Hours: Microbiology 05/03/20 17:21 Aerobic Blood Culture - Preliminary Blood - Venous Gram Positive Cocci In [facility] Anaerobic Blood Culture - Preliminary Gram Positive Cocci In [facility] 05/03/20 17:28 Aerobic Blood Culture - Preliminary Blood - Venous - Lab Draw Gram Positive Cocci In [facility] Anaerobic Blood Culture - Preliminary Gram Positive Cocci In [facility] Med Orders - Current: Current Medications Acetaminophen (Tylenol) 650 mg RECTAL Q4H PRN PRN Reason: Pain/Fever Last Admin: 05/04/20 05:03 Dose: 650 mg Documented by: Atropine Sulfate (Atropine 1% Ophth Soln) 0 ml SL Q2H PRN PRN Reason: Excessive secretions Sodium Chloride (Normal Saline) 1,000 mls @ 1,000 mls/hr IV .BOLUS MAURA Lorazepam (Ativan) 2 mg IV Q6H PRN PRN Reason: Anxiety Miscellaneous Information (Remove Patch) 1 ea TRDERM Q72H [facility] Morphine Sulfate (Morphine) 2 mg IVPUSH Q1H PRN PRN Reason: Pain Last Admin: 05/04/20 08:35 Dose: 2 mg Documented by: Ondansetron HCl (Zofran) 4 mg IV Q4H PRN PRN Reason: Nausea/Vomiting Scopolamine (Transderm-Scop) 1.5 mg TRDERM Q72H PRN PRN Reason: Other Last Admin: 05/04/20 08:17 Dose: 1.5 mg Documented by: Sodium Chloride (Saline Flush) 10 ml FLUSH ASDIRECTED PRN PRN Reason: Keep Vein Open Last Admin: 05/03/20 21:14 Dose: 10 ml Documented by: Discontinued Medications Acetaminophen (Tylenol) 650 mg RECTAL NOW ONE Stop: 05/03/20 17:42 Last Admin: 05/03/20 17:59 Dose: 650 mg Documented by: Etomidate (Amidate) 20 mg IVPUSH ONETIME ONE Stop: 05/03/20 17:21 Last Admin: 05/03/20 19:44 Dose: 20 mg Documented by: Ceftriaxone Sodium 2 gm/ (Sodium Chloride) 100 mls @ 200 mls/hr IV ONETIME ONE Stop: 05/03/20 17:48 Last Admin: 05/03/20 18:52 Dose: 200 mls/hr Documented by: Propofol (Diprivan 100 Ml) 100 mls @ 3 mls/hr IV TITRATE MAURA; Protocol Lactated Ringer's (Ringers, Lactated) Confirm Administered Dose 1,000 mls @ as directed .ROUTE .STK-MED ONE Stop: 05/03/20 18:08 Last Admin: 05/03/20 19:10 Dose: 150 mls/hr Documented by: Nicardipine HCl 25 mg/ Sodium (Chloride) 260 mls @ 52 mls/hr IV TITRATE MAURA; Protocol Last Admin: 05/03/20 18:25 Dose: 5 mg/hr, 52 mls/hr Documented by: Labetalol HCl (Normodyne) Confirm Administered Dose 100 mg .ROUTE .STK-MED ONE Stop: 05/03/20 18:07 Last Admin: 05/03/20 19:02 Dose: Not Given Documented by: Midazolam HCl (Versed 1 Mg/Ml) 5 mg IVPUSH ONETIME ONE Stop: 05/03/20 17:22 Last Admin: 05/03/20 18:53 Dose: 5 mg Documented by: Morphine Sulfate (Morphine) Confirm Administered Dose 2 mg .ROUTE .STK-MED ONE Stop: 05/03/20 23:33 Last Admin: 05/04/20 00:05 Dose: 2 mg Documented by: Morphine Sulfate (Morphine) Confirm Administered Dose 2 mg .ROUTE .STK-MED ONE Stop: 05/04/20 00:03 Last Admin: 05/04/20 00:08 Dose: Not Given Documented by: Rocuronium [place] (Zemuron) 70 mg IVPUSH ONETIME ONE Stop: 05/03/20 17:22 Last Admin: 05/03/20 17:24 Dose: 70 mg Documented by: Succinylcholine Chloride (Quelicin) 120 mg IV ONETIME ONE Stop: 05/03/20 17:21 Last Admin: 05/03/20 20:48 Dose: 120 mg Documented by: - Exam Quality Assessment: Urine Catheter ([facility] ). No: Supplemental Oxygen, DVT Prophylaxis General: Obtunded Lungs: Rhonchi. No: Normal Respiratory Effort (Tachypneic) Cardiovascular: Regular Rhythm, Tachycardia Extremities: Pedal Edema Skin: Warm, Moist Sepsis Event Note - Evaluation Sepsis Screening Result: No Definite Risk - Focused Exam Vital Signs: Vital Signs Temp Temp Pulse Resp BP Pulse Ox 05/04/20 08:41 40 H 05/04/20 05:03 104.0 F H 05/04/20 04:44 104.0 F H 05/03/20 23:14 95 40 H 171/79 H 93 L - Problem List & Annotations (1) Intracranial hemorrhage SNOMED Code(s): 6678410 Code(s): I62.9 - NONTRAUMATIC INTRACRANIAL HEMORRHAGE, UNSPECIFIED Status: Acute Priority: High Current Visit: Yes (2) Comfort measures only status SNOMED Code(s): 78197189157621 Code(s): Z51.5 - ENCOUNTER FOR PALLIATIVE CARE Status: Acute Priority: High Current Visit: Yes - Problem List Review Problem List Initiated/Reviewed/Updated: Yes - My Orders Last 24 Hours: My Active Orders 05/04/20 08:15 Atropine 1% [Atropine 1% Ophth Soln] 0 ml SL Q2H PRN - Plan Plan:: Assessment 84-year-old male with severe vascular disease presents to the emergency department via EMS after being found unresponsive and seizing. * CT of the head showed large parenchymal hemorrhage on the left. * Neurosurgery consulted and felt this was incompatible with life and it was not amiable to treatment * Family is at bedside. * Patient received COVID-19 vaccination 4 days ago Plan * Admit for observation * Morphine for respiratory distress and pain * Scopolamine patch and atropine SL for excessive secretions * Continue drake catheter for comfort measures * Comfort measures * Life expectancy less than 24 hours. <Isaac Moore - Last Filed: 05/04/20 15:39> - Patient Data Vitals - Most Recent: Last Vital Signs Temp 37.7 C 05/04/20 12:36 Pulse 95 05/03/20 23:14 Resp 40 H 05/04/20 08:41 BP 171/79 H 05/03/20 23:14 Pulse Ox 93 L 05/03/20 23:14 I&O - Last 24 Hours: Intake & Output 05/04/20 05/04/20 05/04/20 06:59 14:59 22:59 Intake Total 0 Output Total 300 Balance -300 Lab Results Last 24 Hours: Laboratory Results - last 24 hr 05/03/20 05/03/20 05/03/20 Range/Units 17:15 17:15 17:15 WBC 17.27 H (4.23-9.07) K/mm3 RBC 4.89 (4.63-6.08) M/mm3 Hgb 14.7 (13.7-17.5) gm/dl Hct 44.8 (40.1-51.0) % MCV 91.6 (79.0-92.2) fl MCH 30.1 (25.7-32.2) pg MCHC 32.8 (32.2-35.5) g/dl RDW Std Deviation 47.3 H (35.1-43.9) fL Plt Count 126 L (163-337) K/mm3 MPV 9.5 (9.4-12.3) fl Neut % (Auto) 89.0 H (34.0-67.9) % Lymph % (Auto) 5.6 L (21.8-53.1) % [place] % (Auto) 4.9 L (5.3-12.2) % Eos % (Auto) 0 L (0.8-7.0) Baso % (Auto) 0.2 (0.1-1.2) % Neut # (Auto) 15.38 H (1.78-5.38) K/mm3 Lymph # (Auto) 0.96 L (1.32-3.57) K/mm3 [place] # (Auto) 0.85 H (0.30-0.82) K/mm3 Eos # (Auto) 0.00 L (0.04-0.54) K/mm3 Baso # (Auto) 0.03 (0.01-0.08) K/mm3 Manual Slide Review Abnormal smear PT 12.4 H (9.7-12.0) SECONDS INR 1.16 APTT 29.3 (21.7-31.4) SECONDS D-Dimer, Quantitative 1.74 H (0.19-0.50) mg/L Sodium 136 (136-145) mEq/L Potassium 3.4 L (3.5-5.1) mEq/L Chloride 99 (98-107) mEq/L Carbon Dioxide 22 (21-32) mEq/L Anion Gap 18.4 H (5-15) BUN 22 H (7-18) mg/dL Creatinine 1.9 H (0.7-1.3) mg/dL Est Cr Clr Drug Dosing TNP Estimated GFR (MDRD) 34 (>60) mL/min BUN/Creatinine Ratio 11.6 L (14-18) Glucose 218 H (83-115) mg/dL Lactic Acid (0.4-2.0) mmol/L Calcium 8.8 (8.5-10.1) mg/dL Magnesium 1.5 L (1.8-2.4) mg/dl Total Bilirubin 1.5 H (0.2-1.0) mg/dL AST 31 (15-37) U/L ALT 27 (16-63) U/L Alkaline Phosphatase 178 H (46-116) U/L Troponin I 0.384 H* (0.00-0.056) ng/mL C-Reactive Protein 16.2 H* (<1.0) mg/dL Total Protein 8.0 (6.4-8.2) g/dl Albumin 3.2 L (3.4-5.0) g/dl Globulin 4.8 gm/dL Albumin/Globulin Ratio 0.7 L (1-2) Urine Color (Yellow) Urine Appearance (Clear) Urine pH (5.0-8.0) Ur Specific [place] (1.005-1.030) Urine Protein (Negative) Urine Glucose (UA) (Negative) Urine Ketones (Negative) Urine Occult Blood (Negative) Urine Nitrite (Negative) Urine Bilirubin (Negative) Urine Urobilinogen (0.2-1.0) Ur Leukocyte Esterase (Negative) Urine RBC (0-5) /hpf Urine WBC (0-5) /hpf Ur Squamous Epith Cells (0-5) /hpf Amorphous Sediment (NOT SEEN) /hpf Urine Bacteria (FEW) /hpf Urine Mucus (FEW) /hpf Influenza Type A RNA (NEGATIVE) Influenza Type B RNA (NEGATIVE) SARS-CoV-2 RNA (DAMION) (NEGATIVE) 05/03/20 05/03/20 05/03/20 Range/Units 17:15 17:20 17:28 WBC (4.23-9.07) K/mm3 RBC (4.63-6.08) M/mm3 Hgb (13.7-17.5) gm/dl Hct (40.1-51.0) % MCV (79.0-92.2) fl MCH (25.7-32.2) pg MCHC (32.2-35.5) g/dl RDW Std Deviation (35.1-43.9) fL Plt Count (163-337) K/mm3 MPV (9.4-12.3) fl Neut % (Auto) (34.0-67.9) % Lymph % (Auto) (21.8-53.1) % [place] % (Auto) (5.3-12.2) % Eos % (Auto) (0.8-7.0) Baso % (Auto) (0.1-1.2) % Neut # (Auto) (1.78-5.38) K/mm3 Lymph # (Auto) (1.32-3.57) K/mm3 [place] # (Auto) (0.30-0.82) K/mm3 Eos # (Auto) (0.04-0.54) K/mm3 Baso # (Auto) (0.01-0.08) K/mm3 Manual Slide Review PT (9.7-12.0) SECONDS INR APTT (21.7-31.4) SECONDS D-Dimer, Quantitative (0.19-0.50) mg/L Sodium (136-145) mEq/L Potassium (3.5-5.1) mEq/L Chloride (98-107) mEq/L Carbon Dioxide (21-32) mEq/L Anion Gap (5-15) BUN (7-18) mg/dL Creatinine (0.7-1.3) mg/dL Est Cr Clr Drug Dosing Estimated GFR (MDRD) (>60) mL/min BUN/Creatinine Ratio (14-18) Glucose (83-115) mg/dL Lactic Acid 2.6 H* (0.4-2.0) mmol/L Calcium (8.5-10.1) mg/dL Magnesium (1.8-2.4) mg/dl Total Bilirubin (0.2-1.0) mg/dL AST (15-37) U/L ALT (16-63) U/L Alkaline Phosphatase (46-116) U/L Troponin I (0.00-0.056) ng/mL C-Reactive Protein (<1.0) mg/dL Total Protein (6.4-8.2) g/dl Albumin (3.4-5.0) g/dl Globulin gm/dL Albumin/Globulin Ratio (1-2) Urine Color Yellow (Yellow) Urine Appearance Clear (Clear) Urine pH 6.0 (5.0-8.0) Ur Specific [place] 1.020 (1.005-1.030) Urine Protein 3+ H (Negative) Urine Glucose (UA) Negative (Negative) Urine Ketones Trace H (Negative) Urine Occult Blood 2+ H (Negative) Urine Nitrite Negative (Negative) Urine Bilirubin Negative (Negative) Urine Urobilinogen 1.0 (0.2-1.0) Ur Leukocyte Esterase Negative (Negative) Urine RBC 10-20 H (0-5) /hpf Urine WBC 0-5 (0-5) /hpf Ur Squamous Epith Cells Not seen (0-5) /hpf Amorphous Sediment Few H (NOT SEEN) /hpf Urine Bacteria Few (FEW) /hpf Urine Mucus Not seen (FEW) /hpf Influenza Type A RNA Negative (NEGATIVE) Influenza Type B RNA Negative (NEGATIVE) SARS-CoV-2 RNA (DAMION) Negative (NEGATIVE) Eddie Results Last 24 Hours: Microbiology 05/03/20 17:21 Aerobic Blood Culture - Preliminary Blood - Venous Gram Positive Cocci In [facility] Anaerobic Blood Culture - Preliminary Gram Positive Cocci In [facility] 05/03/20 17:28 Aerobic Blood Culture - Preliminary Blood - Venous - Lab Draw Gram Positive Cocci In [facility] Anaerobic Blood Culture - Preliminary Gram Positive Cocci In [facility] Med Orders - Current: Current Medications Acetaminophen (Tylenol) 650 mg RECTAL Q4H PRN PRN Reason: Pain/Fever Last Admin: 05/04/20 12:36 Dose: 650 mg Documented by: Atropine Sulfate (Atropine 1% Ophth Soln) 0 ml SL Q2H PRN PRN Reason: Excessive secretions Last Admin: 05/04/20 15:13 Dose: 5 ml Documented by: Lorazepam (Ativan) 2 mg IV Q6H PRN PRN Reason: Anxiety Miscellaneous Information (Remove Patch) 1 ea TRDERM Q72H [facility] Morphine Sulfate (Morphine) 2 mg IVPUSH Q1H PRN PRN Reason: Pain Last Admin: 05/04/20 11:12 Dose: 2 mg Documented by: Ondansetron HCl (Zofran) 4 mg IV Q4H PRN PRN Reason: Nausea/Vomiting Scopolamine (Transderm-Scop) 1.5 mg TRDERM Q72H PRN PRN Reason: Other Last Admin: 05/04/20 08:17 Dose: 1.5 mg Documented by: Sodium Chloride (Saline Flush) 10 ml FLUSH ASDIRECTED PRN PRN Reason: Keep Vein Open Last Admin: 05/03/20 21:14 Dose: 10 ml Documented by: Discontinued Medications Acetaminophen (Tylenol) 650 mg RECTAL NOW ONE Stop: 05/03/20 17:42 Last Admin: 05/03/20 17:59 Dose: 650 mg Documented by: Etomidate (Amidate) 20 mg IVPUSH ONETIME ONE Stop: 05/03/20 17:21 Last Admin: 05/03/20 19:44 Dose: 20 mg Documented by: Sodium Chloride (Normal Saline) 1,000 mls @ 1,000 mls/hr IV .BOLUS MAURA Ceftriaxone Sodium 2 gm/ (Sodium Chloride) 100 mls @ 200 mls/hr IV ONETIME ONE Stop: 05/03/20 17:48 Last Admin: 05/03/20 18:52 Dose: 200 mls/hr Documented by: Propofol (Diprivan 100 Ml) 100 mls @ 3 mls/hr IV TITRATE MAURA; Protocol Lactated Ringer's (Ringers, Lactated) Confirm Administered Dose 1,000 mls @ as directed .ROUTE .STK-MED ONE Stop: 05/03/20 18:08 Last Admin: 05/03/20 19:10 Dose: 150 mls/hr Documented by: Nicardipine HCl 25 mg/ Sodium (Chloride) 260 mls @ 52 mls/hr IV TITRATE MAURA; Protocol Last Admin: 05/03/20 18:25 Dose: 5 mg/hr, 52 mls/hr Documented by: Labetalol HCl (Normodyne) Confirm Administered Dose 100 mg .ROUTE .STK-MED ONE Stop: 05/03/20 18:07 Last Admin: 05/03/20 19:02 Dose: Not Given Documented by: Midazolam HCl (Versed 1 Mg/Ml) 5 mg IVPUSH ONETIME ONE Stop: 05/03/20 17:22 Last Admin: 05/03/20 18:53 Dose: 5 mg Documented by: Morphine Sulfate (Morphine) Confirm Administered Dose 2 mg .ROUTE .STK-MED ONE Stop: 05/03/20 23:33 Last Admin: 05/04/20 00:05 Dose: 2 mg Documented by: Morphine Sulfate (Morphine) Confirm Administered Dose 2 mg .ROUTE .STK-MED ONE Stop: 05/04/20 00:03 Last Admin: 05/04/20 00:08 Dose: Not Given Documented by: Rocuronium [place] (Zemuron) 70 mg IVPUSH ONETIME ONE Stop: 05/03/20 17:22 Last Admin: 05/03/20 17:24 Dose: 70 mg Documented by: Succinylcholine Chloride (Quelicin) 120 mg IV ONETIME ONE Stop: 05/03/20 17:21 Last Admin: 05/03/20 20:48 Dose: 120 mg Documented by: Sepsis Event Note - Focused Exam Vital Signs: Vital Signs Temp Temp Resp 05/04/20 12:36 37.7 C 05/04/20 08:41 40 H 05/04/20 05:03 40.0 C H 05/04/20 04:44 40.0 C H - My Orders Last 24 Hours: My Active Orders 05/04/20 07:55 Scopolamine [Transderm-Scop] 1.5 mg TRDERM Q72H PRN 05/04/20 Dinner No Tray Needed Diet [DIET] 05/07/20 08:00 Remove Patch 1 ea TRDERM Q72H - Plan Plan:: I have seen and examined the patient independently of Madhu Wong PA-C. I have reviewed the orders and agree with the plan of care as outlined by him. I have discussed the case with him. Please see orders. The patient's prognosis is grim.
[2020-05-04] MEDS: Atropine 1% Ophth Soln 5 ML BOTTLE SL PRN ×4 (12:36→21:23)
[2020-05-04 16:15] VITALS: BP 160/75; PULSE 93
--- NOTE | 2020-05-05 07:06 | PCM.DCSUM1 ---
Discharge Summary - Hospital Course HPI Initial Comments: Admitted secondary to large intraparenchymal hemorrhage left hemisphere. Diagnosis: Stroke: Yes Modified Potter Scale: Modified Potter Scale Score: 6 - Discharge Data Discharge Date: 05/04/20 Discharge Disposition: 20 Preliminary Cause of *Q: Multi System Organ Failure Condition: - Referral to [facility] Primary Care Physician: Sam Neff MD - Patient Summary/Data Hospital Course: The patient was an 84-year-old gentleman who had been admitted on 05/03/2020 due to subarachnoid hemorrhage. The patient also had presented to the emergency department prior to acute admission and was noted to have a low-grade temperature, back pain, chest pain and headache. The patient came back and had been intubated on route to the emergency department. He was found to be obtunded. The patient had a CT scan of his head obtained on 05/03/2020 which showed a large parenchymal hemorrhage on the left side with 1.2 cm midline shift. Neurosurgery have been consulted through the emergency department and this particular bleed was found to be incompatible with life. The patient then was extubated and he was given last rights. The patient then was transferred to comfort measures. On day prior to the patient was noted to have excessive secretions and he was placed on scopolamine patch to help with the secretions. He also had been placed on comfort measures with Ativan and morphine to help with pain and agitation. He also had no corneal reflexes, no cough or gag reflexes, no response to pain. The patient had continued to decline and was kept comfortable. The patient quietly at 2250 on 05/04/2020. - Discharge Plan Home Medications: Home Meds Allopurinol [Zyloprim] 300 mg PO DAILY 01/23/17 [History] Aspirin [Ecotrin] 81 mg PO DAILY 01/23/17 [History] Clopidogrel Bisulfate [Plavix] 75 mg PO DAILY 01/23/17 [History] Isosorbide Mononitrate [Imdur] 30 mg PO DAILY 01/23/17 [History] Nitroglycerin [Nitrostat] 0.4 mg SL ASDIRECTED PRN 01/23/17 [History] Rosuvastatin [Crestor] 10 mg PO DAILY 01/23/17 [History] Codeine/guaiFENesin [guaiFENesin-Codeine Syrup] 5 ml PO Q6H PRN #1 cup 09/28/18 [Rx] Furosemide [Lasix] 40 mg PO BID 09/28/18 [History] Levothyroxine 75 mg PO DAILY 09/28/18 [History] Metoprolol Succinate [Toprol XL 50mg] 50 mg PO BID 09/28/18 [History] Pantoprazole Sodium [Protonix] 0 mg PO DAILY 09/28/18 [History] Sertraline [Zoloft] 25 mg PO DAILY 09/28/18 [History] Sildenafil Citrate 100 mg PO ASDIRECTED 09/28/18 [History] Hydrocodone/Acetaminophen [Hydrocodone-Acetamin 5-325 mg] 1 each PO Q6H PRN #15 tablet 05/03/20 [Rx] Forms: ED Department Discharge Referrals: Sam Neff MD [Primary Care Provider] - - Discharge Summary/Plan Comment DC Time >30 min.: No - Patient Data Vitals - Most Recent: Last Vital Signs Temp 38.0 C 05/04/20 21:15 Pulse 93 05/04/20 04:23 Resp 38 H 05/04/20 13:36 BP 160/75 H 05/04/20 04:23 Pulse Ox 94 L 05/04/20 04:23 Weight - Most Recent: 113.126 kg I&O - Last 24 hours: Intake & Output 05/04/20 05/05/20 05/05/20 22:59 06:59 14:59 Output Total 350 Balance -350 TOMY Results - Last 24 hrs: Microbiology 05/03/20 17:21 Aerobic Blood Culture - Preliminary Blood - Venous Gram Positive [facility] In [facility] Anaerobic Blood Culture - Preliminary Gram Positive [facility] 05/03/20 17:28 Aerobic Blood Culture - Preliminary Blood - Venous - Lab Draw Gram Positive [facility] In [facility] Anaerobic Blood Culture - Preliminary Gram Positive [facility] In [facility] Med Orders - Current: Current Medications Discontinued Medications Acetaminophen (Tylenol) 650 mg RECTAL NOW ONE Stop: 05/03/20 17:42 Last Admin: 05/03/20 17:59 Dose: 650 mg Documented by: Acetaminophen (Tylenol) 650 mg RECTAL Q4H PRN PRN Reason: Pain/Fever Last Admin: 05/04/20 21:15 Dose: 650 mg Documented by: Atropine Sulfate (Atropine 1% Ophth Soln) 0 ml SL Q2H PRN PRN Reason: Excessive secretions Last Admin: 05/04/20 21:23 Dose: 5 ml Documented by: Etomidate (Amidate) 20 mg IVPUSH ONETIME ONE Stop: 05/03/20 17:21 Last Admin: 05/03/20 19:44 Dose: 20 mg Documented by: Sodium Chloride (Normal Saline) 1,000 mls @ 1,000 mls/hr IV .BOLUS MAURA Ceftriaxone Sodium 2 gm/ (Sodium Chloride) 100 mls @ 200 mls/hr IV ONETIME ONE Stop: 05/03/20 17:48 Last Admin: 05/03/20 18:52 Dose: 200 mls/hr Documented by: Propofol (Diprivan 100 Ml) 100 mls @ 3 mls/hr IV TITRATE MAURA; Protocol Lactated Ringer's (Ringers, Lactated) Confirm Administered Dose 1,000 mls @ as directed .ROUTE .STK-MED ONE Stop: 05/03/20 18:08 Last Admin: 05/03/20 19:10 Dose: 150 mls/hr Documented by: Nicardipine HCl 25 mg/ Sodium (Chloride) 260 mls @ 52 mls/hr IV TITRATE MAURA; Protocol Last Admin: 05/03/20 18:25 Dose: 5 mg/hr, 52 mls/hr Documented by: Labetalol HCl (Normodyne) Confirm Administered Dose 100 mg .ROUTE .STK-MED ONE Stop: 05/03/20 18:07 Last Admin: 05/03/20 19:02 Dose: Not Given Documented by: Lorazepam (Ativan) 2 mg IV Q6H PRN PRN Reason: Anxiety Midazolam HCl (Versed 1 Mg/Ml) 5 mg IVPUSH ONETIME ONE Stop: 05/03/20 17:22 Last Admin: 05/03/20 18:53 Dose: 5 mg Documented by: Miscellaneous Information (Remove Patch) 1 ea TRDERM Q72H MAURA Morphine Sulfate (Morphine) Confirm Administered Dose 2 mg .ROUTE .STK-MED ONE Stop: 05/03/20 23:33 Last Admin: 05/04/20 00:05 Dose: 2 mg Documented by: Morphine Sulfate (Morphine) Confirm Administered Dose 2 mg .ROUTE .STK-MED ONE Stop: 05/04/20 00:03 Last Admin: 05/04/20 00:08 Dose: Not Given Documented by: Morphine Sulfate (Morphine) 2 mg IVPUSH Q1H PRN PRN Reason: Pain Last Admin: 05/04/20 22:39 Dose: 2 mg Documented by: Ondansetron HCl (Zofran) 4 mg IV Q4H PRN PRN Reason: Nausea/Vomiting Rocuronium [place] (Zemuron) 70 mg IVPUSH ONETIME ONE Stop: 05/03/20 17:22 Last Admin: 05/03/20 17:24 Dose: 70 mg Documented by: Scopolamine (Transderm-Scop) 1.5 mg TRDERM Q72H PRN PRN Reason: Other Last Admin: 05/04/20 08:17 Dose: 1.5 mg Documented by: Sodium Chloride (Saline Flush) 10 ml FLUSH ASDIRECTED PRN PRN Reason: Keep Vein Open Last Admin: 05/03/20 21:14 Dose: 10 ml Documented by: Succinylcholine Chloride (Quelicin) 120 mg IV ONETIME ONE Stop: 05/03/20 17:21 Last Admin: 05/03/20 20:48 Dose: 120 mg Documented by: Discharge Operative/Procedures - Procedures Performed Intubation Indication: Respiratory Failure, Airway Protection
== END 2020-05-04 22:50 | disposition expired ==
LOC: JD.ED 17:05 → JD.MS 22:32
PROVIDERS: ADMIT Family Medicine; ATTEND Family Medicine
DX: I62.9 Nontraumatic intracranial hemorrhage, unspecified (principal); I25.10 Atherosclerotic heart disease of native coronary artery without angina pectoris; E03.9 Hypothyroidism, unspecified; E78.00 Pure hypercholesterolemia, unspecified; Z20.822 Contact with and (suspected) exposure to COVID-19; Z98.84 Bariatric surgery status; Z79.82 Long term (current) use of aspirin; Z79.02 Long term (current) use of antithrombotics/antiplatelets; Z79.899 Other long term (current) drug therapy; Z79.890 Hormone replacement therapy; Z98.890 Other specified postprocedural states; M54.9 Dorsalgia, unspecified; R51.9 Headache, unspecified; D72.828 Other elevated white blood cell count; R79.89 Other specified abnormal findings of blood chemistry; N28.9 Disorder of kidney and ureter, unspecified; I11.0 Hypertensive heart disease with heart failure; Z95.5 Presence of coronary angioplasty implant and graft
CPT/HCPCS: 0240U; 31500; 36415; 43752; 70450; 70450-26; 71045; 71045-26; 71275; 71275-26; 80053; 81001; 82550; 83605; 83735; 84484; 85025; 85379; 85610; 85730; 86140; 87040; 87077; 87186; 93005; 93010; 96365; 96367; 96375; 96376; 99217; 99218; 99220; 99284; 99285-25; 99291; A9270-GY; G0378; J0330; J0696; J2250; J2270; J3490; J7030; J7050; J7120; Q9967